=== PATIENT | male | born 1980 | race Caucasian/White ===

== ENCOUNTER 2018-11-19 17:58 | Emergency (ER) | payer MEDICAID, SELFPAY ==
[2018-11-19 18:00] VITALS: BP 126/78; PULSE 82; RESP 16; TEMP 36.5; O2SAT 97
--- NOTE | 2018-11-19 18:08 | ED.GENADUL_ITS ---
Discharge Plan Disposition Patient Disposition: HOME Condition: Stable Discharge Details Chief Complaint: DentalOral Clinical Impression: Pain, dental Primary Care Provider: Dianne Thomas ED Provider: Christiano Thacker Home Meds and New Rx's Prescriptions: New amoxicillin 875 mg tablet 875 mg PO BID Qty: 20 RF: 0 Continued ibuprofen 600 MG tablet 600 mg PO Q6H PRN (Reason: Pain) Qty: 16 RF: 0 No Action penicillin V potassium 500 MG tablet 500 mg PO QID Qty: 28 RF: 0 cyclobenzaprine 10 MG tablet 10 mg PO Q8H PRN (Reason: Muscle Spasm) Qty: 15 RF: 0 Discharge Instructions Additional Instructions: follow up with your dentist within 1-2 weeks if you have difficulty breathing, difficulty swallowing liquids or high fevers return to the emergency department you can take 1000mg tylenol and 600mg ibuprofen every 6 hours for pain as needed Medical Decision Making 38 yo male comes in with left upper tooth pain starting today without fevers, chills, dyspnea or difficulty swallowing. STates he has poor dentition and has hx of dental infections and needs his teeth pulled. He is in no distress on exam speaking and swallowing without problems. HAs numerous dental caries with no abscess currently, has pain with percussion to the left upper tooth that is eroded. No submandibular swelling, no pain over hyoid or restricted neck movements, no findings to suggest rpa, area captain, epiglotitis, lemieres, ludwigs. Will start on abx and d/c home and advised f/u with dentist Differential Diagnosis Differential Diagnosis: dental abscess, pulpitis HPI General Mode of arrival: ambulatory . Date/Time Provider Initiated Documentation: 11/19/18 17:58 . Limitations to Documentation: no limitations . Information obtained by: patient . History of Present Illness 38 year old M presents to the emergency department with the chief complaint of dental pain, described as moderate, and it has been constant. No relieving factors improve symptom(s), No exacerbating factors reported . Patient did receive the following treatments prior to arrival, none Related Data Home Medications Medication Instructions Recorded Confirmed penicillin V potassium 500 mg PO QID #28 tablet 02/03/17 cyclobenzaprine 10 mg PO Q8H PRN #15 tab 08/14/17 ibuprofen 600 mg PO Q6H PRN #16 tablet 08/14/17 amoxicillin 875 mg PO BID #20 tab 11/19/18 Previous Rx's Medication Instructions Recorded penicillin V potassium 500 mg PO QID #28 tablet 02/03/17 cyclobenzaprine 10 mg PO Q8H PRN #15 tab 08/14/17 ibuprofen 600 mg PO Q6H PRN #16 tablet 08/14/17 amoxicillin 875 mg PO BID #20 tab 11/19/18 Allergies Allergy/AdvReac Type Severity Reaction Status Date / Time No Known Allergies Allergy Unverified 02/03/17 13:45 General Stated Complaint: DentalOral HERLINDA: 4 Review of Systems Review of Systems ROS Unobtainable: All systems reviewed & are unremarkable except as noted in HPI and below Constitutional Constitutional: Denies chills and Denies fever(s) Cardiovascular Cardiovascular: Denies dyspnea Respiratory Respiratory: Denies cough and Denies dyspnea Gastrointestinal Gastrointestinal: Denies abdominal pain, Denies nausea and Denies vomiting Integumentary/Breasts Skin/Breast: Denies rash PFSH Social History Smoking/Tobacco Use Status: Current every day Tobacco Type: cigarettes Alcohol Intake: never Substance use type: does not use Do you feel safe at home: Yes Do you feel safe in your relationship?: Yes Exam Const General: no acute distress Orientation: alert HENMT Head: normal to inspection Ears: external ears normal General nose exam: external nose normal Mouth: moist mucous membranes Eyes General: appearance normal, both eyes and all related structures Neck Neck: normal visual inspection Resp Effort & Inspection: normal respiratory effort and able to speak in complete sentences Cardio Rate: regular rate Skin General skin exam: no rashes or lesions noted Neuro General: alert and oriented x3 Extrem General: normal to inspection Psych Mental Status: mental status grossly normal Course Vital Signs Vital signs: Vital Signs Temperature 36.5 C 11/19/18 18:00 Pulse 82 11/19/18 18:00 Respiratory Rate 16 11/19/18 18:00 Blood Pressure 126/78 11/19/18 18:00 Pulse Oximetry 97 11/19/18 18:00 Temperature 36.5 C 11/19/18 18:00 Temperature Source Skin 11/19/18 18:00 Pulse 82 11/19/18 18:00 Respiratory Rate 16 11/19/18 18:00 Respiratory Effort Non-Labored 11/19/18 18:02 Blood Pressure 126/78 11/19/18 18:00 Blood Pressure Position Sitting 11/19/18 18:00 Pulse Oximetry 97 11/19/18 18:00 Oxygen Delivery Method Room Air 11/19/18 18:00 Oxygen Flow Rate 0 11/19/18 18:00 Pain Level 3 11/19/18 18:00
[2018-11-19 18:30] VITALS: BP 126/78; PULSE 82; RESP 16; TEMP 36.5; O2SAT 97
== END 2018-11-19 18:30 | disposition home or self-care (01) ==
PROVIDERS: Emergency Provider Emergency Medicine; PCP Nurse Practitioner
DX: R68.84 Jaw pain (principal); K08.89 Other specified disorders of teeth and supporting structures
CPT/HCPCS: 99283

== ENCOUNTER 2018-11-30 03:18 | Emergency (ER) | payer MEDICAID, SELFPAY ==
[2018-11-30 03:23] VITALS: BP 114/74; PULSE 95; RESP 16; TEMP 37; O2SAT 99
--- NOTE | 2018-11-30 03:24 | ED.GENADUL_ITS ---
Discharge Plan Disposition Patient Disposition: HOME Condition: Stable Discharge Details Chief Complaint: Abd Prob Clinical Impression: Diarrhea Primary Care Provider: Dianne Thomas ED Provider: Christiano Thacker Home Meds and New Rx's Prescriptions: Discontinued amoxicillin 875 mg tablet 875 mg PO BID Qty: 20 RF: 0 penicillin V potassium 500 MG tablet 500 mg PO QID Qty: 28 RF: 0 No Action No Known Home Meds RF: 0 Discharge Instructions Instructions: Acute Diarrhea (ED) Additional Instructions: Stop taking the antibiotics collect a stool sample and bring it to the lab for testing. You will be contacted if the tests are positive follow up with your primary care provider if not better in a week. try taking over the counter imodium, follow dosing instructions on packaging if you feel you are becoming more ill or have severe worsening pain or persistent vomit return to the emergency department Stand Alone Forms: Work Release Medical Decision Making 38 yo male who is on antibiotics for dental infection (amoxicillin) comes in with chief complaint of several days of abdominal cramping and watery diarrhea. Denies vomit, fevers, recent travel, severe abdominal pain. He has no tenderness on abdominal exam and no distention or other worrisome findings. I suspect antibiotic associated diarrhea vs gastroenteritis, less likely c diff but given on abx advised we should test for this, unfortunately he just went to the bathroom and doesn't feel he can provide a sample so he prefers to collect at home and bring back tot he lab. Given reassuring abdominal exam, stable vitals do not feel acute imaging or other lab work indicated. Will d/c with stool collection order and return precautions given Differential Diagnosis Differential Diagnosis: cdiff, antibiotic associated diarrhea, gastroenteritis HPI General Mode of arrival: ambulatory . Date/Time Provider Initiated Documentation: 11/30/18 03:21 . Limitations to Documentation: no limitations . Information obtained by: patient . History of Present Illness 38 year old M presents to the emergency department with the chief complaint of diarrhea, described as moderate, and it has been intermittent. No relieving factors improve symptom(s), No exacerbating factors reported . Patient did receive the following treatments prior to arrival, none Related Data Home Medications Medication Instructions Recorded Confirmed Unknown [No Known Home Meds] 11/30/18 11/30/18 Allergies Allergy/AdvReac Type Severity Reaction Status Date / Time No Known Allergies Allergy Unverified 09/23/19 03:32 General HERLINDA: 4 Review of Systems Review of Systems ROS Unobtainable: All systems reviewed & are unremarkable except as noted in HPI and below Constitutional Constitutional: Denies chills, Denies fever(s) and Denies weakness Cardiovascular Cardiovascular: Denies chest pain and Denies dyspnea Respiratory Respiratory: Denies dyspnea Gastrointestinal Gastrointestinal: Denies nausea and Denies vomiting Genitourinary Genitourinary: Denies dysuria Musculoskeletal Musculoskeletal: Denies joint swelling Integumentary/Breasts Skin/Breast: Denies rash Neurologic Neurologic: Denies weakness [facility] Social History Smoking/Tobacco Use Status: Current every day Tobacco Type: cigarettes Alcohol Intake: never Substance use type: does not use Do you feel safe at home: Yes Do you feel safe in your relationship?: Yes Exam Const General: no acute distress Orientation: alert HENMT Head: normal to inspection Ears: external ears normal General nose exam: external nose normal Mouth: moist mucous membranes Eyes General: appearance normal, both eyes and all related structures Neck Neck: normal visual inspection Resp Effort & Inspection: normal respiratory effort and able to speak in complete sentences Cardio Rate: regular rate GI Palpation: soft Skin General skin exam: no rashes or lesions noted Neuro General: alert and oriented x3 Extrem General: normal to inspection Psych Mental Status: mental status grossly normal
[2018-11-30] MEDS: Loperamide 2 MG CAP 4 MG PO (03:43)
== END 2018-11-30 03:50 | disposition home or self-care (01) ==
PROVIDERS: Emergency Provider Emergency Medicine; PCP Nurse Practitioner
DX: R19.7 Diarrhea, unspecified (principal)
CPT/HCPCS: 99283

== ENCOUNTER 2018-12-25 06:55 | Emergency (ER) | payer MEDICAID, SELFPAY ==
[2018-12-25 07:00] VITALS: BP 113/69; PULSE 90; RESP 16; TEMP 36.3; O2SAT 97
--- NOTE | 2018-12-25 07:04 | W.ED.GENAD ---
Discharge Plan Disposition Patient Disposition: HOME Condition: Good Discharge Details Chief Complaint: RespSymp Clinical Impression: Acute bacterial sinusitis Primary Care Provider: Angela Montana ED Provider: Jean Claude Jin and New Rx's Prescriptions: New amoxicillin-pot clavulanate [Augmentin] 875-125 mg tablet 1 tab PO BID Qty: 14 RF: 0 Discharge Instructions Instructions: Sinusitis (ED) Additional Instructions: Antibiotic as prescribed. Acetaminophen or ibuprofen as needed for discomfort or fever. Decongestants and plenty of fluids to stay hydrated. Follow-up with primary care next week if not getting better. Return to ED for persistent high fevers, worsening headaches, mental status changes, difficulty breathing, other concerns or problems. Stand Alone Forms: Work Release Referrals: Angela Montana, [employer] [Primary Care Provider] - Medical Decision Making Patient presenting with signs and symptoms consistent with sinusitis. Given that he was getting better and subsequently got worse with associated sweats and chills likely bacterial at this point. Vital signs are good. Saturations are good. Lungs are clear. Will start on Augmentin and have him follow-up with primary care next week if not better. Return to ED for persistent high fevers, worsening headache, mental status changes, difficulty breathing. HPI General Mode of arrival: ambulatory. Date/Time Provider Initiated Documentation: 12/25/18 07:02. Limitations to Documentation: no limitations. Information obtained by: patient and RN notes reviewed. HPI Narrative: Patient presents to ED with complaint of congestion, cough, sinus pressure. Patient has been ill for about 2 weeks. Thought he was getting better earlier this week and subsequently got worse again. Now having sweats and chills. Has a lot of discomfort and congestion behind the eyes. Has thick yellow nasal discharge. Denies having earache, sore throat, shortness of breath. He does have a cough. He does smoke. He has no significant past medical history. Related Data Home Medications Medication Instructions Recorded Confirmed amoxicillin-pot clavulanate 1 tab PO BID #14 tab 12/25/18 [Augmentin] Previous Rx's Medication Instructions Recorded amoxicillin-pot clavulanate 1 tab PO BID #14 tab 12/25/18 [Augmentin] Allergies Allergy/AdvReac Type Severity Reaction Status Date / Time No Known Allergies Allergy Unverified 12/25/18 07:06 General Stated Complaint: RespSymp HERLINDA: 4 Review of Systems Review of Systems Narrative: As documented in HPI otherwise negative as below. Const: sweats and chills; no documented fever, weakness Resp: cough; SOB, pleuritic pain CV: no CP, edema, syncope GI: no abdominal pain, nausea, vomiting, diarrhea Neuro: no headache, numbness, focal weakness, confusion PFSH Family History (Updated 12/04/18 @ 12:03 by Opal Naidu) Father Substance abuse Heart disease Mother Anxiety Depression Diabetes Social History Smoking/Tobacco Use Status: Current every day Tobacco Type: cigarettes and smokeless tobacco Alcohol Intake: never Drug use: Current Sobriety Substance use type: does not use and opiates Details: History of IV Drug Use Household members: significant other Housing: house Do you need help understanding health information?: Rarely current occupation: [employer] Sexually active: Yes Do you think of yourself as: straight/heterosexual Current gender identity: male Do you feel safe at home: Yes Do you feel safe in your relationship?: Yes Exam Narrative Exam Narrative: Vitals: Afebrile. Normal vital signs and normal room air pulse ox. Const: WDWN male in NAD. HEENT: NC/AT. Normal facial exam. No maxillary or frontal sinus tenderness. TMs clear. OP clear. Eyes: Normal conjunctiva and sclera. Neck: Supple. Trachea midline. Lungs: Normal respiratory effort. Lungs are clear. Cor: RRR without murmur/gallop. Good radial pulses. Neuro: A+O x 3. CN grossly in tact. Good strength and no focal deficit. Course Vital Signs Vital signs: Vital Signs Temperature 97.3 F L 12/25/18 07:00 Pulse 90 12/25/18 07:00 Respiratory Rate 16 12/25/18 07:00 Blood Pressure 113/69 12/25/18 07:00 Pulse Oximetry 97 12/25/18 07:00 Temperature 97.3 F L 12/25/18 07:00 Temperature Source Temporal Artery Scan 12/25/18 07:00 Pulse 90 12/25/18 07:00 Respiratory Rate 16 12/25/18 07:00 Respiratory Effort Non-Labored 12/25/18 07:00 Blood Pressure 113/69 12/25/18 07:00 Blood Pressure Position Sitting 12/25/18 07:00 Pulse Oximetry 97 12/25/18 07:00 Oxygen Delivery Method Room Air 12/25/18 07:00 Oxygen Flow Rate 0 12/25/18 07:00 Pain Level 0 12/25/18 07:00
[2018-12-25] MEDS: Amoxicillin 875/Clav. 125 TAB PO (07:29)
== END 2018-12-25 07:30 | disposition home or self-care (01) ==
PROVIDERS: Emergency Provider Emergency Medicine; PCP Nurse Practitioner Adult Health
DX: J01.90 Acute sinusitis, unspecified (principal)
CPT/HCPCS: 99283

== ENCOUNTER 2020-05-04 03:25 | Outpatient (CLI) | payer MEDICAID, SELFPAY ==
[2020-05-04 11:17] LABS: Calculated LDL 58 mg/dL (<100); Cholesterol 145 mg/dL (<200); HDL Cholesterol 54 mg/dL (40-60); Triglyceride 169 mg/dL (<150)
== END 2020-05-04 03:26 | disposition home or self-care (01) ==
LOC: LBO 03:25
PROVIDERS: PCP Family Medicine; Visit Provider Family Medicine
DX: Z13.220 Encounter for screening for lipoid disorders (principal); Z82.49 Family history of ischemic heart disease and other diseases of the circulatory system
CPT/HCPCS: 36415; 80061

== ENCOUNTER 2020-06-14 07:30 | Emergency (ER) | payer OTHER, SELFPAY ==
[2020-06-14 07:38] VITALS: BP 117/71; PULSE 78; RESP 15; TEMP 36.6; O2SAT 96
[2020-06-14] MEDS: Lidocaine 1% Multi-Dose 50 ML VIAL (08:10)
--- NOTE | 2020-06-14 08:29 | ED.GENADUL_ITS ---
Discharge Plan Disposition Patient Disposition: HOME Condition: Good Discharge Details Clinical Impression: Finger laceration Primary Care Provider: Nima Leonardo ED Provider: Bridgette Bennett Home Meds and New Rx's Prescriptions: No Action naproxen [Naprosyn] 500 mg Tablet 500 mg PO BID PRNRF: 0 buprenorphine-naloxone 12-3 mg Film 1 film BUCCAL Q24H RF: 0 Discharge Instructions Instructions: Finger Laceration (ED) Additional Instructions: Keep wound clean and dry Change dressing every 1 to 2 days Refrain from flexing and extending your finger Suture removal in 12 days Return with worsening pain, spreading redness, fever, chills, or with any new or worsening complaints Medical Decision Making Patient placed in splint, tolerated suture placement without incident Irrigated copiously Dressing applied Return precautions discussed and patient expressed understanding No evidence of tendon avulsion, range of motion intact, strength and sensation intact Suspicion for fracture, no additional trauma Differential Diagnosis Differential Diagnosis: Laceration, abrasion, contusion, fracture Medical Records Medical records reviewed: Yes I reviewed the patient's medical records. HPI This 40-year-old male presents with report of laceration to his left thumb just prior to arrival. Patient is reportedly comfortable chiseling at work. He denies any additional injury. He denies any strength or sensation change. The event occurred at 5:00 morning General Date/Time Provider Initiated Documentation: 06/14/20 08:06 . Related Data Home Medications Medication Instructions Recorded Confirmed buprenorphine-naloxone 1 film BUCCAL Q24H 06/14/20 06/14/20 naproxen [Naprosyn] 500 mg PO BID PRN 06/14/20 06/14/20 Allergies Allergy/AdvReac Type Severity Reaction Status Date / Time No Known Allergies Allergy Unverified 06/14/20 07:42 General Stated Complaint: Laceration HERLINDA: 4 Review of Systems Narrative: Review of systems obtained x3 and negative aside from where indicated in HPI PFSH Social History Smoking risk assessment performed?: No Alcohol Intake: never Drug use: Current Sobriety Do you feel safe at home: Yes Do you feel safe in your relationship?: Yes Exam Extrem Other: Left hand laceration left radial aspect of thumb, brisk capillary refill, strength and sensation intact Course Vital Signs Vital signs: Vital Signs Temperature 36.6 C 06/14/20 07:38 Pulse 78 06/14/20 07:38 Respiratory Rate 15 06/14/20 07:38 Blood Pressure 117/71 06/14/20 07:38 Pulse Oximetry 96 06/14/20 07:38 Temperature 36.6 C 06/14/20 07:38 Temperature Source Temporal Artery Scan 06/14/20 07:38 Pulse 78 06/14/20 07:38 Respiratory Rate 15 06/14/20 07:38 Respiratory Effort Non-Labored 06/14/20 07:43 Blood Pressure 117/71 06/14/20 07:38 Blood Pressure Position Sitting 06/14/20 07:38 Pulse Oximetry 96 06/14/20 07:38 Oxygen Delivery Method Room Air 06/14/20 07:38 Oxygen Flow Rate 0 06/14/20 07:38 Pain Level 5 06/14/20 08:06 Procedures Laceration Laceration 1: Site: hand Side (If applicable): left Size (cm): 2 Description: linear Depth: simple, single layer Local Anesthetic: Lidocaine 1% Amount of anesthesia used (mL): 4 Pre-repair: wound explored and irrigated extensively Skin layer closed with: nylon Size (cm): 4-0 Number of sutures: 3 Technique: simple, interrupted
== END 2020-06-14 09:39 | disposition home or self-care (01) ==
PROVIDERS: Emergency Provider Physician Assistant; PCP Internal Medicine
DX: S61.012A Laceration without foreign body of left thumb without damage to nail, initial encounter (principal); W26.8XXA Contact with other sharp object(s), not elsewhere classified, initial encounter; Y99.0 Civilian activity done for income or pay
CPT/HCPCS: 12001; J3490

== ENCOUNTER 2020-06-25 13:02 | Emergency (ER) | payer MEDICAID, SELFPAY ==
--- NOTE | 2020-06-25 13:04 | ED.GENADUL_ITS ---
Discharge Plan Disposition Patient Disposition: HOME Condition: Good Discharge Details Clinical Impression: Visit for suture removal Primary Care Provider: Karan Hunt ED Provider: Lesa Bauer Home Meds and New Rx's Prescriptions: Continued nicotine (polacrilex) 4 mg gum 4 mg BC Q2H PRN (Reason: nicotine cravings) Qty: 50 RF: 3 naproxen [Naprosyn] 500 mg Tablet 500 mg PO BID PRNRF: 0 buprenorphine-naloxone 12-3 mg Film 1 film BUCCAL Q24H RF: 0 Discharge Instructions Instructions: Stitches Removal (ED) Additional Instructions: Wound appears to be healing well at this time. Please continue to follow precautions prevent infection. You may apply vitamin E oil and massage to the area to help reduce scarring. Please avoid direct sunlight as this will also increase scarring. if you develop any fever/chills, increased pain, redness or other new/worsening symptoms please seek care urgently once again. Referrals: Karan Hunt DO [Primary Care Provider] - Medical Decision Making Patient is a pleasant [id number] 40-year-old male presenting today with chief complaint of suture removal. Patient had sutures placed here 11 days ago. Denies any pain. On exam, patient appears nontoxic. Wound appears to be healing well without any evidence of infection. No erythema, warmth, drainage. Wound edges are well approximated. #3 stitches were removed by myself without difficulty, patient tolerated this well. Patient has been in a splint and does have slightly limited flexion. He continues to have good extension. The wound is on the dorsal aspect of the finger. I encourage gentle massage to the area as he does have some palpable scar tissue. Advised he may use vitamin E oil. Advised that he stay out of direct sunlight to help prevent scarring. I advised that he should continue to monitor wound for signs of infection and try to avoid forced flexion during the period of healing. However, I did advise that he may work on gentle range of motion. Advise follow-up with primary care. Return precautions were discussed. All questions concerns were addressed and he is in agreement with this plan. HPI General Mode of arrival: ambulatory . Date/Time Provider Initiated Documentation: 06/25/20 13:04 . Limitations to Documentation: no limitations . Information obtained by: patient and RN notes reviewed . History of Present Illness 40 year old M presents to the emergency department with the chief complaint of presents for suture removal, described as mild (denies any pain), and is localized to the left and upper extremity. Patient reports no radiation. Patient started experiencing this day(s) (11) and it has been now resolved. No relieving factors improve symptom(s), No exacerbating factors reported . Patient notes no other symptoms.. Patient did receive the following treatments prior to arrival, none Related Data Home Medications Medication Instructions Recorded Confirmed nicotine (polacrilex) 4 mg gum 4 mg BC Q2H PRN #50 each 11/08/19 06/25/20 buprenorphine-naloxone 1 film BUCCAL Q24H 06/14/20 06/25/20 naproxen [Naprosyn] 500 mg PO BID PRN 06/14/20 06/25/20 Previous Rx's Medication Instructions Recorded nicotine (polacrilex) 4 mg gum 4 mg BC Q2H PRN #50 each 11/08/19 Allergies Allergy/AdvReac Type Severity Reaction Status Date / Time No Known Allergies Allergy Verified 06/25/20 13:11 General HERLINDA: 4 Review of Systems Constitutional Constitutional: Reports as per HPI, Denies chills, Denies fever(s) and Denies weakness Musculoskeletal Musculoskeletal: Reports as per HPI and Denies tingling Integumentary/Breasts Skin/Breast: Reports as per HPI Neurologic Neurologic: Denies sensory deficit, Denies tingling and Denies weakness [facility] Medical History Carpal tunnel syndrome, bilateral Cubital tunnel syndrome, bilateral Family history of cardiovascular disease Polyarthritis Family History (System 06/15/20 @ 16:21 by Bita Easley) Father Substance abuse Heart disease Mother Anxiety Depression Diabetes Social History Smoking/Tobacco Use Status: Current every day Tobacco Type: cigarettes and smokeless tobacco Quit status: considering quitting Smoking risk assessment performed?: Yes Alcohol Intake: never Drug use: Current Sobriety Substance use type: does not use and opiates Details: History of IV Drug Use, on Suboxone Household members: significant other Housing: house Number of Children: 3 Do you need help understanding health information?: Rarely current occupation: [employer] Sexually active: Yes Do you think of yourself as: straight/heterosexual Current gender identity: male What is your relationship status?: living with partner Panel score (0-1 are the most socially isolated patients): 1 What type of physical activity do you participate in: other Details: physically active at work Seatbelt use: always 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 Working smoke detector in home: Yes Fire extinguisher in home: Yes Carbon monox detector in home: Yes Do you feel safe at home: Yes Do you feel safe in your relationship?: Yes Exam Const General: cooperative, healthy appearing, comfortable, no acute distress and well developed Nutritional Appearance: average body habitus and well nourished Orientation: alert and awake Resp Effort & Inspection: normal respiratory effort, able to speak in complete sentences and no respiratory distress Cardio Rate: regular rate Rhythm: regular rhythm Neuro General: patient alert and patient awake Cognition: normal cognition Speech: speech normal Gait: normal gait Extrem Hand/finger images: 1. Linear laceration closed with simple interrupted stitches. No evidence of infection. No erythema, warmth, drainage. Wound appears to be healing well and stitches are able to be removed at this time. Psych Appearance: grossly normal and well kempt Mental Status: mental status grossly normal Speech and Movement: speech and movement normal
[2020-06-25 13:06] VITALS: BP 128/76; PULSE 89; RESP 16; TEMP 36.4; O2SAT 100
== END 2020-06-25 13:16 | disposition home or self-care (01) ==
PROVIDERS: Emergency Provider Physician Assistant; PCP Family Medicine
DX: S61.219D Laceration without foreign body of unspecified finger without damage to nail, subsequent encounter (principal); X58.XXXD Exposure to other specified factors, subsequent encounter; Z48.02 Encounter for removal of sutures

== ENCOUNTER 2020-09-11 13:07 | Emergency (ER) | payer OTHER, SELFPAY ==
[2020-09-11 13:18] VITALS: BP 128/84; PULSE 99; RESP 16; TEMP 36.5; O2SAT 100
--- NOTE | 2020-09-11 13:30 | DI.RAD_ITS ---
Exam(s) XR WRIST LT COMPLETE EXAM: XR WRIST LT COMPLETE CLINICAL HISTORY: FOOSH injury, R/O Fracture. TECHNIQUE: 2D digital imaging was performed. COMPARISON: No exams were available for comparison FINDINGS: BONES: No acute fracture is present. No bony destructive lesion is seen. JOINTS: The carpal bones are normally aligned. SOFT TISSUE: Normal. IMPRESSION: Unremarkable radiographs of the left wrist. DATA REPOSITORY: RADIATION DOSE DELIVERED:
--- NOTE | 2020-09-11 13:31 | ED.GENADUL_ITS ---
Discharge Plan Disposition Patient Disposition: HOME Condition: Stable Discharge Details Clinical Impression: Left wrist sprain Primary Care Provider: Karan Hunt ED Provider: Emely Flores Home Meds and New Rx's Prescriptions: No Action nicotine (polacrilex) 4 mg gum 4 mg BC Q2H PRN (Reason: nicotine cravings) Qty: 50 RF: 3 naproxen [Naprosyn] 500 mg tablet 500 mg PO BID PRN (Reason: pain) Qty: 60 RF: 3 buprenorphine-naloxone 12-3 mg Film 1 film BUCCAL Q24H RF: 0 Discharge Instructions Instructions: Wrist Sprain (ED) Additional Instructions: The x-rays today show no evidence for fracture broken bones. I do suspect that you sprained your wrist. Rest, ice, compression elevation. Wear the splint as needed for comfort for the next week or 2 and while working. Please follow-up with orthopedics in 2 to 3 weeks if continued pain. Please take Tylenol or Ibuprofen with food every 4-6 hours as needed for pain and swelling. Stand Alone Forms: Work Release Referrals: Joce Velasquez MD [ [facility] STAFF PHYSICIAN] - Return if symptoms worsen Karan Hunt DO [Primary Care Provider] - Discharge Data Discharge Date/Time-TO BE ENTERED AT DEPARTURE: 09/11/20 14:25 Medical Decision Making 40-year-old male presents to ER chief complaint of left wrist pain status post work-related injury. Patient states he has not ladder when it got knocked out from under him he did land on his left side and his left wrist. Denies any other injuries no neck pain no back pain no head injury no loss of consciousness. Denies any chest abdomen pelvis pain. He states this happened approximately 10 AM. He did take ibuprofen prior to arrival and did ice his wrist. He is complaining of palmar and dorsal aspect of wrist elbow full range of motion distal circulation sensation movement intact. No obvious deformity noted on initial exam. At this time x-ray of left wrist ordered. Imaging protocol: XR Left wrist. Views: 3 or more views. COMPARISON: No relevant prior studies available. FINDINGS: Bones/joints: There is no evidence of acute fracture. There is no evidence of joint malalignment or dislocation. Soft tissues: There are no soft tissue masses or fluid collections. IMPRESSION: 1. No evidence of acute fracture. 2. No evidence of acute dislocation Discussed x-ray with patient verbalized understanding. Offered a wrist splint which he declined states he has one at home already. Discussed home care, verbalized understanding. HPI General Mode of arrival: ambulatory . Date/Time Provider Initiated Documentation: 09/11/20 13:18 . Limitations to Documentation: no limitations . Information obtained by: patient and RN notes reviewed . HPI Narrative: 40-year-old male presents to ER chief complaint of left wrist pain status post work-related injury. Patient states he has not ladder when it got knocked out from under him he did land on his left side and his left wrist. Denies any other injuries no neck pain no back pain no head injury no loss of consciousness. Denies any chest abdomen pelvis pain. He states this happened approximately 10 AM. He did take ibuprofen prior to arrival and did ice his wrist. He is complaining of palmar and dorsal aspect of wrist elbow full range of motion distal circulation sensation movement intact. No obvious deformity noted on initial exam. Related Data Home Medications Medication Instructions Recorded Confirmed nicotine (polacrilex) 4 mg gum 4 mg BC Q2H PRN #50 each 11/08/19 09/11/20 buprenorphine-naloxone 1 film BUCCAL Q24H 06/14/20 09/11/20 naproxen 500 mg tablet 500 mg PO BID PRN #60 tab 08/29/20 09/11/20 Previous Rx's Medication Instructions Recorded nicotine (polacrilex) 4 mg gum 4 mg BC Q2H PRN #50 each 11/08/19 naproxen 500 mg tablet 500 mg PO BID PRN #60 tab 08/29/20 Allergies Allergy/AdvReac Type Severity Reaction Status Date / Time No Known Allergies Allergy Verified 09/11/20 13:23 General Stated Complaint: Orthopedic HERLINDA: 4 Review of Systems All systems reviewed & are unremarkable except as noted in HPI and below ENT Ears, Nose, Mouth, and Throat: Denies neck pain Musculoskeletal Musculoskeletal: Denies abnormal gait, Denies back pain, Denies deformity, Reports arthralgias (Left wrist), Denies neck pain, Denies numbness and Denies tingling Neurologic Neurologic: Denies abnormal gait, Denies numbness and Denies tingling PFSH Medical History Carpal tunnel syndrome, bilateral Family history of cardiovascular disease History of opioid abuse Polyarthritis Tobacco use Family History Father Substance abuse Heart disease Mother Anxiety Depression Diabetes Social History Smoking/Tobacco Use Status: Current every day Tobacco Type: cigarettes Quit status: considering quitting Smoking risk assessment performed?: Yes Alcohol Intake: never Drug use: Current Sobriety Substance use type: does not use and opiates Details: History of IV Drug Use, on Suboxone Household members: significant other Housing: house Number of Children: 3 Do you need help understanding health information?: Rarely current occupation: [employer] Sexually active: Yes Do you think of yourself as: straight/heterosexual Current gender identity: male What is your relationship status?: living with partner Panel score (0-1 are the most socially isolated patients): 1 What type of physical activity do you participate in: other Details: physically active at work Seatbelt use: always 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 Skin: Warm and Dry HEENT: Head: No palpable deformities, Normocephalic Eyes: Pupils PERRLA, EOM's intact. No periorbital eccymosis or step off Ears: Canal patent. Tympanic membranes are clear . No monteiro's sign, no hemptympanum. Nose/Face: Atraumatic. Facial bones nontender to palpation and stable with manipulation. Mouth/Throat: No intraoral trauma. Teeth and mandible are intact. Neck: No midline tenderness, no step off, no deformity to palpation of C-spine. Trachea midline. Chest: No surface trauma. Nontender without crepitus or deformity. Lungs clear to ausculatation bilaterally. Heart: RRR, no rubs, murmurs or gallop. Abdomen: No abrasions, ecchymosis, or surface trauma. Nondistended. Nontender to palpation no guarding, rebound, or rigidity. Pelvis: Nontender to palpation and stable to compression. Femoral pulses strong and equal Extremities no surface trauma. Sensation intact. Peripheral pulses intact and equal. Tenderness with palpation to the dorsum left wrist palmar aspect of left wrist no snuffbox tenderness. Able to extend and flex fingers without difficulty. Pulses intact. Elbow range of motion intact. Neuro: ANO x4, GCS 15, cranial nerves II through XII intact. Motor and sensory exam nonfocal. Reflexes are symmetric. Course Vital Signs Vital signs: Vital Signs Temperature 36.5 C 09/11/20 13:18 Pulse 99 H 09/11/20 13:18 Respiratory Rate 16 09/11/20 13:18 Blood Pressure 128/84 09/11/20 13:18 Pulse Oximetry 100 09/11/20 13:18 Temperature 36.5 C 09/11/20 13:18 Temperature Source Temporal Artery Scan 09/11/20 13:18 Pulse 99 H 09/11/20 13:18 Respiratory Rate 16 09/11/20 13:18 Respiratory Effort Non-Labored 09/11/20 13:18 Blood Pressure 128/84 09/11/20 13:18 Blood Pressure Position Sitting 09/11/20 13:18 Pulse Oximetry 100 09/11/20 13:18 Oxygen Delivery Method Room Air 09/11/20 13:18 Oxygen Flow Rate 0 09/11/20 13:18 Pain Level 7 09/11/20 13:18
--- NOTE | 2020-09-11 14:12 | DI.VRAD_ITS ---
PROCEDURE INFORMATION: Exam: XR Left Wrist Exam date and time: 09/11/2020 1:31 PM Age: 40 years old Clinical indication: Injury or trauma; Fall; Sprain or strain; Wrist; Left TECHNIQUE: Imaging protocol: XR Left wrist. Views: 3 or more views. COMPARISON: No relevant prior studies available. FINDINGS: Bones/joints: There is no evidence of acute fracture. There is no evidence of joint malalignment or dislocation. Soft tissues: There are no soft tissue masses or fluid collections. IMPRESSION: 1. No evidence of acute fracture. 2. No evidence of acute dislocation. Dictated and Authenticated by: Delbert Dietz MD. Ordering:JULIAN Han MD
[2020-09-11 14:23] VITALS: BP 128/84; PULSE 99; RESP 16; TEMP 36.5; O2SAT 100
== END 2020-09-11 14:25 | disposition home or self-care (01) ==
PROVIDERS: Emergency Provider Registered Nurse Emergency; PCP Family Medicine
DX: S63.592A Other specified sprain of left wrist, initial encounter (principal); W17.89XA Other fall from one level to another, initial encounter; Y99.0 Civilian activity done for income or pay
CPT/HCPCS: 99283; 73110

== ENCOUNTER 2020-09-25 16:13 | Emergency (ER) | payer MEDICAID, SELFPAY ==
[2020-09-25 16:25] VITALS: BP 116/79; PULSE 96; RESP 16; TEMP 37.1; O2SAT 94
--- NOTE | 2020-09-25 16:45 | DI.CT_ITS ---
Exam(s) CT ABDOMEN PELVIS W EXAM: CT ABDOMEN PELVIS W CLINICAL HISTORY: Abdominal Pain, Umbilical hernia. TECHNIQUE: Imaging Protocol: Axial computed tomography images with coronal and sagittal reformatted images were created and reviewed CONTRAST MATERIAL: Intravenous: Omnipaque 350 Contrast volume:100 ml Oral: / no COMPARISON: No exams were available for comparison FINDINGS: ABDOMEN: Lung Bases: Normal where visualized. Liver: Normal density. No measurable mass. Gallbladder and biliary tract: No radiodense calculus or dilation. Pancreas: Normal density, no abnormal calcifications or inflammatory process. Spleen: Normal. Kidneys: Normal size, contour and axis. No radiodense stones or obstructive uropathy. No masses seen. Adrenal glands: No masses seen. Abdominal Aorta: Abdominal portion non-dilated. Soft tissues: Small fatty containing umbilical hernia. There is some stranding in the fat near the a rolf of hernia which could indicate incarceration. There is no fluid within the hernia. PELVIS: Bladder: No gross wall thickening. No calculi.No focal mass. Bowel: No obstruction or bowel wall thickening. Appendix normal.Normal quantity of stool. Peritoneal cavity: No ascites, collection or mesenteric inflammatory response. Bones: Within normal limits for age. Reproductive organs: Within normal limits. Lymph nodes: Unremarkable. Impression: Small fatty containing umbilical hernia with some mild stranding which could indicate incarceration.. RADIATION DOSE DELIVERED: 1,035.52mGy.cm Total DLP DATA REPOSITORY: All CT scans at this facility are submitted to the National Radiology Data Registry (NRDR) Dose Index Registry (DIR) with the [employer] (ACR). RADIATION OPTIMIZATION: All CT scans at this facility use at least one of these dose optimization te chniques: automated exposure control; mA and/or kV adjustment per patient size (includes targeted exa ms where dose is matched to clinical indication); or iterative reconstruction.
--- NOTE | 2020-09-25 16:50 | ED.GENADUL_ITS ---
Discharge Plan Disposition Patient Disposition: HOME Condition: Stable Discharge Details Clinical Impression: Recurrent umbilical hernia with incarceration Primary Care Provider: Karan Hunt ED Provider: Emely Flores Home Meds and New Rx's Prescriptions: Continued nicotine (polacrilex) 4 mg gum 4 mg BC Q2H PRN (Reason: nicotine cravings) Qty: 50 RF: 3 naproxen [Naprosyn] 500 mg tablet 500 mg PO BID PRN (Reason: pain) Qty: 60 RF: 3 buprenorphine-naloxone 12-3 mg Film 1 film BUCCAL Q24H RF: 0 Discharge Instructions Instructions: Umbilical Hernia (ED) Additional Instructions: The CT today shows a umbilical hernia which is contained with Fat only. It may still continue to cause you pain for the next 2 to 3 days. If continued pain after 3 days, changing in color to purple, hernia which is increase in size, fever, vomiting or any concerns please follow-up with general surgery. Please take Tylenol or Ibuprofen with food every 4-6 hours as needed for pain and swelling. No heavy lifting over 50 pounds if possible. Follow up with primary care provider in 3-5 days. Return to ED sooner if any worsening or concerns. Increase oral fluids. Referrals: Karan Hunt DO [Primary Care Provider] - Dulce Franco DO [OSTEOPATHIC DOCTOR] - Return if symptoms worsen (Fat containing incarcerated umbilical hernia) Medical Decision Making 40-year-old male presents the ER complaint of abdominal pain and umbilical h ernia which he noticed this morning. He reports that he was lifting a 60 pound box yesterday noticed increased abdominal tenderness umbilical swelling today. He denies any nausea vomiting, no fever chills, does endorse greenish diarrhea yesterday. He took naproxen this morning with little to no relief. He denies any problems urinating or burning with urination. He has generalized abdominal tenderness on exam there is a small umbilical hernia with which is tender to palpation. Labs ordered including CBC, CMP, lipase CT abdomen pelvis with IV contrast Imaging protocol: Computed tomography of the abdomen and pelvis with contrast. COMPARISON: No relevant prior studies available. FINDINGS: Liver: Normal. No mass. Gallbladder and bile ducts: Normal. No calcified stones. No ductal dilation. Pancreas: Normal. No ductal dilation. Spleen: Normal. No splenomegaly. Adrenal glands: Normal. No mass. Kidneys and ureters: Normal. No hydronephrosis. Stomach and bowel: Unremarkable. No obstruction. No mucosal thickening. Appendix: No evidence of appendicitis. Intraperitoneal space: Unremarkable. No free air. No significant fluid collection. Vasculature: Unremarkable. No abdominal aortic aneurysm. Lymph nodes: Unremarkable. No enlarged lymph nodes. Urinary bladder: Unremarkable as visualized. Reproductive: Unremarkable as visualized. Bones/joints: Unremarkable. No acute fracture. Soft tissues: Small umbilical hernia containing fat. Area of hyperattenuation and stranding within the herniated fat raises suspicion for incarceration (series 4, image 44). IMPRESSION: Small umbilical hernia containing fat. Area of hyperattenuation and stranding within the herniated fat raises suspicion for incarceration. Thank you for allowing us to participate in the care of your patient. Dictated and Authenticated by: Judd Whitney MD [id number]: Spoke with Surgeon contestant coordinator Dr. Karimi regarding CT and patient case and details she was able to personally review the CT. She does note that the umbilical hernia is incarcerated however this is nonemergent and can be followed up as an outpatient if continued pain. Will discuss plan with patient. Follow up and strict return instructions discussed with patient, he verbalizes understanding. Patient remained hemodynamically stable throughout stay. This text was generated using Pikhub dictation system, please disregard any oddities of phrase or misspellings. HPI General Mode of arrival: ambulatory . Date/Time Provider Initiated Documentation: 09/25/20 16:14 . Limitations to Documentation: no limitations . Information obtained by: patient, RN notes reviewed and old records reviewed . HPI Narrative: 40-year-old male presents the ER complaint of abdominal pain and umbilical hernia which he noticed this morning. He reports that he was lifting a 60 pound box yesterday noticed increased abdominal tenderness umbilical swelling today. He denies any nausea vomiting, no fever chills, does endorse greenish diarrhea yesterday. He took naproxen this morning with little to no relief. He denies any problems urinating or burning with urination. He has generalized abdominal tenderness on exam there is a small umbilical hernia with which is tender to palpation. Related Data Home Medications Medication Instructions Recorded Confirmed nicotine (polacrilex) 4 mg gum 4 mg BC Q2H PRN #50 each 11/08/19 09/25/20 buprenorphine-naloxone 1 film BUCCAL Q24H 06/14/20 09/25/20 naproxen 500 mg tablet 500 mg PO BID PRN #60 tab 08/29/20 09/25/20 Previous Rx's Medication Instructions Recorded nicotine (polacrilex) 4 mg gum 4 mg BC Q2H PRN #50 each 11/08/19 naproxen 500 mg tablet 500 mg PO BID PRN #60 tab 08/29/20 Allergies Allergy/AdvReac Type Severity Reaction Status Date / Time No Known Allergies Allergy Verified 09/25/20 16:30 General Stated Complaint: Abd Prob HERLINDA: 3 Review of Systems Narrative: Constitutional: Negative for weight loss, alert and oriented, well groomed, normal body habitus, appears comfortable. HEENT: Denies trauma, headaches, blurry vision, nasal discharge, sore throat, trouble swallowing. Chest: Denies chest pain, palpitations, irregular rhythm, hypertension. Respiratory: Denies Shortness of breath, cough, hemoptysis. GI: Denies nausea, vomiting, constipation. Positive abdominal pain, swelling noted to the umbilical area, positive green diarrhea yesterday. : Denies dysuria, hematuria, flank pain, rectal bleeding. Neuro: Denies dizziness, blurry vision, weakness, syncope, headache or facial numbness. Hematologic: Denies easy bruising, intolerance to heat or cold, hair loss. PFSH Medical History Carpal tunnel syndrome, bilateral Family history of cardiovascular disease History of opioid abuse Polyarthritis Tobacco use Family History Father Substance abuse Heart disease Mother Anxiety Depression Diabetes Social History Smoking/Tobacco Use Status: Current every day Tobacco Type: cigarettes Quit status: considering quitting Smoking risk assessment performed?: Yes Alcohol Intake: never Drug use: Current Sobriety Substance use type: does not use and opiates Details: History of IV Drug Use, on Suboxone Household members: significant other Housing: house Number of Children: 3 Do you need help understanding health information?: Rarely current occupation: [employer] Sexually active: Yes Do you think of yourself as: straight/heterosexual Current gender identity: male What is your relationship status?: living with partner Panel score (0-1 are the most socially isolated patients): 1 What type of physical activity do you participate in: other Details: physically active at work Seatbelt use: always 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 Appears stated age. Normal body habitus. Head: Normocephalic, no trauma. Eyes: Pupils PERRLA, Red reflex noted, EOM's intact. Eyelids symmetrical without lesions, discharge, or swelling. ENT: Bilateral TM's WNL, External ear normal to inspection, no mastoid TTP, swelling, or erythema, Nasal turbinates WNL, no nasal discharge. Normal dentition, Posterior pharynx WNL, no exudate. Chest: RRR, Normal S1, S2, distal pulses intact. Resp: Lungs clear to auscultation bilaterally, no wheezes, rales, or rhonchi. Abdomen:, Guarded, generalized tenderness all 4 quadrants, umbilical hernia noted, red in color tender with palpation, unable to reduce it at this time. Musculoskeletal: Normal gait, 5/5 strength to all four extremities. Skin: No suspicious rashes or lesions. Capillary refill less than 2 sec. Neurologic: Cranial nerves II-XII intact. Alert and oriented x 3. DTR's intact. Hematologic/Lymphatic: No ecchymosis, no lymphadenopathy. Course Vital Signs Vital signs: Vital Signs Temperature 37.1 C 09/25/20 16:25 Pulse 96 H 09/25/20 16:25 Respiratory Rate 16 09/25/20 16:25 Blood Pressure 116/79 09/25/20 16:25 Pulse Oximetry 94 09/25/20 16:25 Temperature 37.1 C 09/25/20 16:25 Temperature Source Skin 09/25/20 16:25 Pulse 96 H 09/25/20 16:25 Respiratory Rate 16 09/25/20 16:25 Respiratory Effort Non-Labored 09/25/20 16:25 Blood Pressure 116/79 09/25/20 16:25 Blood Pressure Position Sitting 09/25/20 16:25 Pulse Oximetry 94 09/25/20 16:25 Oxygen Delivery Method Room Air 09/25/20 16:25 Oxygen Flow Rate 0 09/25/20 16:25 Pain Level 7 09/25/20 16:25
[2020-09-25] MEDS: Normal Saline 1,000 ML 1000 ML IV (17:30)
[2020-09-25 17:49] LABS: ALT 28 U/L (16-63); AST 26 U/L (15-37); Albumin 3.6 g/dL (3.4-5.0); Alkaline Phosphatase 74 U/L (46-116); Anion Gap 7.5 mmol/L (3-11); BUN 18 mg/dL (7-18); Bilirubin, Total 0.4 mg/dL (0.2-1.0); CO2 27.5 mmol/L (21.0-32.0); CREATININE 1.1 mg/dL (0.70-1.30); Calcium 8.7 mg/dL (8.5-10.1); Chloride 107 mmol/L (98-107); Glucose 94 mg/dL (74-106); Lipase 57 U/L (73-393); Magnesium 1.9 mg/dL (1.8-2.4); Sodium 142 mmol/L (136-145); Total Protein 7.2 g/dL (6.4-8.2)
[2020-09-25] MEDS: Omnipaque 350 MG/ML 100 ML BTL IJ (18:05)
[2020-09-25] MEDS: Normal Saline Flush 10 ML SYR IVP (18:05)
[2020-09-25 18:09] LABS: Abs Immature Grans 0.03 10^3/uL (0.0-0.06); Absolute Basophil Count 0.04 10^3/uL (0.0-0.2); Absolute Eosinophil Count 0.23 10^3/uL (0.0-0.7); Absolute Lymphocyte Count 2.42 10^3/uL (1.2-3.4); Absolute Monocyte Count 0.74 10^3/uL (0.1-0.8); Absolute Neutrophil Count 4.93 10^3/uL (1.2-6.7); Basophils % 0.5; Eosinophils % 2.7; HCT 38.2 % (40.0-50.0); Immature Grans % 0.4; Lymphocytes % 28.8; MCH 32.6 pg (27.0-33.0); MCV 95.7 fL (80-95); MPV 10.3 fL (8.0-11.0); Monocytes % 8.8; Neutrophils % 58.8; Nucleated RBC 0 %; Platelet Count 213 10^3/uL (130-400); RBC 3.99 10^6/uL (4.36-5.78); RDW-SD 41.8 fL; WBC 8.39 10^3/uL (4.4-10.8)
--- NOTE | 2020-09-25 18:27 | DI.VRAD_ITS ---
PROCEDURE INFORMATION: Exam: CT Abdomen And Pelvis With Contrast Exam date and time: 09/25/2020 5:01 PM Age: 40 years old Clinical indication: Patient HX: Abdominal pain, umbilical hernia TECHNIQUE: Imaging protocol: Computed tomography of the abdomen and pelvis with contrast. COMPARISON: No relevant prior studies available. FINDINGS: Liver: Normal. No mass. Gallbladder and bile ducts: Normal. No calcified stones. No ductal dilation. Pancreas: Normal. No ductal dilation. Spleen: Normal. No splenomegaly. Adrenal glands: Normal. No mass. Kidneys and ureters: Normal. No hydronephrosis. Stomach and bowel: Unremarkable. No obstruction. No mucosal thickening. Appendix: No evidence of appendicitis. Intraperitoneal space: Unremarkable. No free air. No significant fluid collection. Vasculature: Unremarkable. No abdominal aortic aneurysm. Lymph nodes: Unremarkable. No enlarged lymph nodes. Urinary bladder: Unremarkable as visualized. Reproductive: Unremarkable as visualized. Bones/joints: Unremarkable. No acute fracture. Soft tissues: Small umbilical hernia containing fat. Area of hyperattenuation and stranding within the herniated fat raises suspicion for incarceration (series 4, image 44). IMPRESSION: Small umbilical hernia containing fat. Area of hyperattenuation and stranding within the herniated fat raises suspicion for incarceration. Dictated and Authenticated by: Judd Whitney MD. Ordering:JULIAN Han MD
[2020-09-25 19:07] VITALS: BP 115/76; PULSE 74; RESP 16; O2SAT 99
== END 2020-09-25 19:11 | disposition home or self-care (01) ==
PROVIDERS: Emergency Provider Registered Nurse Emergency; PCP Family Medicine
DX: K42.0 Umbilical hernia with obstruction, without gangrene (principal)
CPT/HCPCS: 36415; 80053; 83690; 96360; 96361; 99285; 74177; 83735; 85025; 99284; J3490

== ENCOUNTER 2021-09-11 06:19 | Observation (INO) | payer MEDICAID, SELFPAY ==
[2021-09-11 06:28] VITALS: BP 145/94; PULSE 84; RESP 20; O2SAT 100
[2021-09-11] MEDS: Ketorolac 30 MG/ML VIAL IM (06:45)
[2021-09-11] MEDS: Lactated Ringers 500 ML IV (06:52)
[2021-09-11 07:03] LABS: Abs Immature Grans 0.02 10^3/uL (0.0-0.06); Absolute Basophil Count 0.05 10^3/uL (0.0-0.2); Absolute Eosinophil Count 0.19 10^3/uL (0.0-0.7); Absolute Lymphocyte Count 3.95 10^3/uL (1.2-3.4); Absolute Monocyte Count 0.67 10^3/uL (0.1-0.8); Absolute Neutrophil Count 4.58 10^3/uL (1.2-6.7); Basophils % 0.5; HCT 42.2 % (40.0-50.0); HGB 15.1 g/dL (13.5-17.5); Immature Grans % 0.2; Lymphocytes % 41.8; MCH 32.3 pg (27.0-33.0); MCHC 35.8 % (32.0-36.0); MCV 90 fL (80-95); MPV 10.5 fL (8.0-11.0); Monocytes % 7.1; Neutrophils % 48.4; Platelet Count 228 10^3/uL (130-400); RBC 4.67 10^6/uL (4.36-5.78); RDW 11.6 % (11.8-14.1); RDW-SD 38.7 fL; WBC 9.46 10^3/uL (4.4-10.8)
--- NOTE | 2021-09-11 07:07 | W.ED.GENAD ---
Discharge Plan Disposition Patient Disposition: STILL A PATIENT Condition: Serious Discharge Details Primary Care Provider: Karan Hunt ED Provider: Fransico Orellana Home Meds and New Rx's Prescriptions: No Action nicotine (polacrilex) 4 mg gum 4 mg BC Q2H PRN (Reason: nicotine cravings) Qty: 50 3RF naproxen [Naprosyn] 500 mg tablet 500 mg PO BID PRN (Reason: pain) Qty: 60 0RF buprenorphine-naloxone 12-3 mg Film 1 film BUCCAL Q24H Medical Decision Making 715 --41-year-old male here with sudden onset severe right flank pain with associated hematuria. Patient has right CVA tenderness. Concern for acute renal colic versus obstructed stone. Plan to check labs. Patient was initially given Toradol 30 mg IM while IV was being established. He continued to have severe pain. Dilaudid 1 mg and Toradol 15 mg IV administered. Plan to obtain CT of the abdomen and pelvis renal protocol. 739 --labs reviewed and hypokalemia noted. Will give potassium chloride 20 mEq IV and 20 mEq by mouth. Lab Data Lab results reviewed: Yes I reviewed the patient's lab results. Labs: Laboratory Tests Range/Units 09/11/21 09/11/21 06:45 06:45 WBC (4.4-10.8) 10^3/uL 9.46 RBC (4.36-5.78) 10^6/uL 4.67 Hgb (13.5-17.5) g/dL 15.1 Hct (40.0-50.0) % 42.2 MCV (80-95) fL 90 MCH (27.0-33.0) pg 32.3 MCHC (32.0-36.0) % 35.8 RDW (11.8-14.1) % 11.6 L Plt Count (130-400) 10^3/uL 228 MPV (8.0-11.0) fL 10.5 Immature Gran % 0.2 Neutrophils % 48.4 Lymphocytes % 41.8 Monocytes % 7.1 Eosinophils % 2.0 Basophils % 0.5 Nucleated RBC % (0.0-0.3) % 0.0 Absolute Neutrophils (1.2-6.7) 10^3/uL 4.58 Absolute Lymphocytes (1.2-3.4) 10^3/uL 3.95 H Absolute Monocytes (0.1-0.8) 10^3/uL 0.67 Absolute Eosinophils (0.0-0.7) 10^3/uL 0.19 Absolute Basophils (0.0-0.2) 10^3/uL 0.05 Sodium (136-145) mmol/L 137 Potassium (3.5-5.1) mmol/L 2.8 L* Chloride (98-107) mmol/L 99 Carbon Dioxide (21.0-32.0) mmol/L 27.7 Anion Gap (3-11) mmol/L 10.3 BUN (7-18) mg/dL 14 Creatinine (0.70-1.30) mg/dL 1.3 Estimated GFR/1.73 m2 (mL/min/1.73m2) >= 60.00 Glucose (74-106) mg/dL 150 H Calcium (8.5-10.1) mg/dL 9.1 Total Bilirubin (0.2-1.0) mg/dL 0.9 AST (15-37) U/L 18 ALT (16-63) U/L 24 Alkaline Phosphatase (46-116) U/L 59 Total Protein (6.4-8.2) g/dL 7.7 Albumin (3.4-5.0) g/dL 3.9 HPI General Mode of arrival: ambulatory. Date/Time Provider Initiated Documentation: 09/11/21 06:23. Limitations to Documentation: no limitations. Information obtained by: patient. HPI Narrative: 41-year-old male here with severe right flank pain. Pain started around 530 and has persisted. No modifiers. Pain is sharp. He has associated hematuria. No history of renal stones in the past. No associated nausea or vomiting. No fever. 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 Related Data Home Medications Medication Instructions Recorded Confirmed nicotine (polacrilex) 4 mg gum 4 mg buccal Q2H PRN nicotine 11/08/19 09/25/20 cravings #50 ea buprenorphine 12 mg-naloxone 3 mg 1 film buccal Q24H 06/14/20 09/11/21 sublingual film naproxen 500 mg tablet (Naprosyn) 500 mg PO BID PRN pain #60 tabs 03/16/21 Previous Rx's Medication Instructions Recorded nicotine (polacrilex) 4 mg gum 4 mg buccal Q2H PRN nicotine 11/08/19 cravings #50 ea naproxen 500 mg tablet (Naprosyn) 500 mg PO BID PRN pain #60 tabs 03/16/21 Allergies Allergy/AdvReac Type Severity Reaction Status Date / Time No Known Allergies Allergy Verified 09/11/21 06:31 General Stated Complaint: FlankPain HERLINDA: 3 Review of Systems Narrative: unable to obtain complete ros secondary to acuity of condition PFSH All Active Problems Medial epicondyle apophysitis due to overuse (Acute) Encounter for annual health examination (Acute) Left wrist sprain (Acute) Recurrent umbilical hernia with incarceration (Acute) Visit for suture removal (Acute) Finger laceration (Acute) Carpal tunnel syndrome, bilateral (Acute) Polyarthritis (Acute) Family history of cardiovascular disease (Acute) Low back pain (Acute) Iliopsoas abscess (Acute) Medical History History of opioid abuse Tobacco use Family History Father Substance abuse Heart disease Mother Anxiety Depression Diabetes Social History Smoking/Tobacco Use Status: Current every day Tobacco Type: cigarettes Quit status: considering quitting Smoking risk assessment performed?: Yes Alcohol Intake: current Alcohol Intake frequency: holidays/special occasions only Alcohol type: beer Drug use: Current Sobriety Substance use type: does not use and opiates Details: History of IV Drug Use, on Suboxone Household members: significant other Housing: house Number of Children: 3 Communication Needs: None Do you need help understanding health information?: Rarely current occupation: [employer] Sexually active: Yes Do you think of yourself as: straight/heterosexual Current gender identity: male What is your relationship status?: living with partner How often do you get together with friends or relatives?: three or more times per week Panel score (0-1 are the most socially isolated patients): 2 What type of physical activity do you participate in: other Details: physically active at work Seatbelt use: always 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 Working smoke detector in home: Yes Fire extinguisher in home: Yes Carbon monox detector in home: Yes Do you feel safe at home: Yes Do you feel safe in your relationship?: Yes Exam Const General: cooperative, well developed, acute distress and other (in pain) Orientation: alert and awake HENUT Mouth: moist mucous membranes Eyes Conjunctivae: normal conjunctivae Sclera: normal sclerae Neck Neck: trachea midline and supple Resp Auscultation: clear to auscultation bilaterally, no rales, no rhonchi and no wheezes Cardio Rhythm: regular rhythm GI Palpation: soft, not firm, no guarding, no masses, not rigid and nontender General: CVA tenderness on the right Skin General skin exam: no rashes or lesions noted Neuro General: patient alert, patient awake and tone normal Extrem General: no edema Psych Appearance: grossly normal Mental Status: mental status grossly normal Course Vital Signs Vital signs: Vital Signs Pulse 84 09/11/21 06:28 Respiratory Rate 20 09/11/21 06:28 Blood Pressure 145/94 H 09/11/21 06:28 Pulse Oximetry 100 09/11/21 06:28 Pulse 84 09/11/21 06:28 Respiratory Rate 20 09/11/21 06:28 Respiratory Effort Non-Labored 09/11/21 06:31 Blood Pressure 145/94 H 09/11/21 06:28 Blood Pressure Position Sitting 09/11/21 06:28 Pulse Oximetry 100 09/11/21 06:28 Oxygen Delivery Method Room Air 09/11/21 06:28 Oxygen Flow Rate 0 09/11/21 06:28 Pain Level 10 09/11/21 06:45
[2021-09-11] MEDS: HYDROmorphone 2 MG/ML VIAL 1 MG IVP ×2 (07:11→08:26)
[2021-09-11] MEDS: Ketorolac 15 MG/ML VIAL IVP (07:12)
[2021-09-11 07:26] LABS: ALT 24 U/L (16-63); AST 18 U/L (15-37); Albumin 3.9 g/dL (3.4-5.0); Alkaline Phosphatase 59 U/L (46-116); Anion Gap 10.3 mmol/L (3-11); BUN 14 mg/dL (7-18); Bilirubin, Total 0.9 mg/dL (0.2-1.0); CO2 27.7 mmol/L (21.0-32.0); CREATININE 1.3 mg/dL (0.70-1.30); Calcium 9.1 mg/dL (8.5-10.1); Chloride 99 mmol/L (98-107); Glucose 150 mg/dL (74-106); Sodium 137 mmol/L (136-145); Total Protein 7.7 g/dL (6.4-8.2)
[2021-09-11 07:29] LABS: Potassium 2.8 mmol/L (3.5-5.1)
[2021-09-11] MEDS: Potassium Chloride 20 MEQ TABCR PO (07:45)
[2021-09-11 07:47] VITALS: BP 135/94; PULSE 75; RESP 18; TEMP 37; O2SAT 99
--- NOTE | 2021-09-11 07:49 | DI.CT_ITS ---
Exam(s) CT RENAL COLIC WO EXAM: CT RENAL COLIC WO CLINICAL HISTORY: left flank pain, hematuria. TECHNIQUE: Imaging Protocol: Axial computed tomography images with coronal and sagittal reformatted images were created and reviewed CONTRAST MATERIAL: Intravenous: none Oral: None COMPARISON: CT CT ABDOMEN PELVIS W from 09/25/2020 FINDINGS: VISUALIZED LUNG BASES: No nodules nor pleural effusions evident. ABDOMEN: There is no ascites. LIVER: There are no obvious focal hepatic lesions evident of this noninfused study. GALLBLADDER/BILIARY: No obvious gallbladder pathology. CBD is not dilated. PANCREAS: No evidence of pancreatic mass nor dilatation of the pancreatic duct. SPLEEN: Spleen is not enlarged. No obvious intrasplenic lesions. ADRENALS: There are no significant adrenal masses. KIDNEYS:Left kidney unremarkable. There is mild right-sided hydronephrosis and hydroureter. This is related to a calculus in the lower right ureter just above the UVJ, this calculus measuring 3 millim eters. No calculi seen in the nondistended urinary bladder.. ABDOMINAL AORTA: Abdominal aorta is not enlarged. LYMPH NODES: There is no retroperitoneal nor paraaortic adenopathy. ABDOMINAL WALL: Again noted is a fat only containing anterior abdominal wall umbilical hernia. GI: There is no evidence of bowel obstruction, free air, nor abscess. PELVIS: LYMPH NODES: There is no intrapelvic nor inguinal adenopathy. GI: No evidence of appendicitis.No evidence of sigmoid diverticulitis. URINARY BLADDER: No calculi nor obvious masses evident REPRODUCTIVE: Prostate gland is not enlarged. Seminal vesicles unremarkable OSSEOUS: No significant osseous lesions. IMPRESSION: 1. The main acute finding here is a 3 millimeter calculus in the lower right ureter just above the UV J. There is mild dilatation of the right collecting system above this level. 2. No calculi in the left collecting system. No other focal renal findings. 3. No evidence of acute appendicitis. Called by myself to ER provider RADIATION DOSE DELIVERED: 766.19mGy.cm Total DLP DATA REPOSITORY: All CT scans at this facility are submitted to the National Radiology Data Registry (NRDR) Dose Index Registry (DIR) with the [employer] (ACR). RADIATION OPTIMIZATION: All CT scans at this facility use at least one of these dose optimization te chniques: automated exposure control; mA and/or kV adjustment per patient size (includes targeted exa ms where dose is matched to clinical indication); or iterative reconstruction.
[2021-09-11] MEDS: POTASSIUM CHLORIDE 20 MEQ/100 ML BAG 50 MEQ IVPB ×2 (07:50→10:54)
--- NOTE | 2021-09-11 08:06 | ED.PROG_ITS ---
Date of service: 09/11/21 Time of Service: 08:00 Medical Decision Making 0800 --please see Dr. Orellana's note for initial presentation, exam and plan. 41-year-old male with 3 mm ureteral stone above the right UVJ. He is on Suboxone and was given Toradol x2 and Dilaudid x1 but now with return of pain. We will give an additional dose of Dilaudid and reassess. 0855 --patient screaming and moaning in pain. Will likely need to admit for pain control due to opioid antagonist property of suboxone. Will give 10mg oxycodone PO and IV tylenol. 0930 --patient had brief relief of pain and now it is returning and he is moaning again. Will admit for intractable pain. He has been unable to provide a urine sample. 1015 --discussed case with Dr. Richardson. Recommends to keep patient n.p.o. as he might need ureteral stent. Case discussed with Dr. Mo who accepts patient for admission. Agreeable with plan for oral pain control as needed 1045 --patient pain much improved after 15 mg of oxycodone Medical Records Medical records reviewed: Yes I reviewed the patient's medical records. Imaging Data Radiologic Study: Radiologist's impression: CT RENAL COLIC WO CLINICAL HISTORY: ? left flank pain, hematuria. ? TECHNIQUE:? Imaging Protocol: Axial computed tomography images with coronal and sagittal reformatted images were created and reviewed CONTRAST MATERIAL:? Intravenous: none Oral: None COMPARISON:? CT CT ABDOMEN ? PELVIS W from 09/25/2020 FINDINGS: VISUALIZED LUNG BASES: No nodules nor pleural effusions evident.? ABDOMEN: There is no ascites. LIVER: There are no obvious focal hepatic lesions evident of this noninfused study.? GALLBLADDER/BILIARY: No obvious gallbladder pathology.? CBD is not dilated. PANCREAS: No evidence of pancreatic mass nor dilatation of the pancreatic duct.? SPLEEN: Spleen is not enlarged.? No obvious intrasplenic lesions.? ADRENALS: There are no significant adrenal masses. KIDNEYS:Left kidney unremarkable.? There is mild right-sided hydronephrosis and hydroureter.? This is related to a calculus in the lower right ureter just above the UVJ, this calculus measuring 3 millimeters.? No calculi seen in the nondistended urinary bladder.. ABDOMINAL AORTA: Abdominal aorta is not enlarged. LYMPH NODES: There is no retroperitoneal nor paraaortic adenopathy. ABDOMINAL WALL: Again noted is a fat only containing anterior abdominal wall umbilical hernia. GI: There is no evidence of bowel obstruction, free air, nor abscess. PELVIS:? LYMPH NODES: There is no intrapelvic nor inguinal adenopathy. GI: No evidence of appendicitis.No evidence of sigmoid diverticulitis. URINARY BLADDER: No calculi nor obvious masses evident REPRODUCTIVE: Prostate gland is not enlarged.? Seminal vesicles unremarkable OSSEOUS: No significant osseous lesions. IMPRESSION: 1. The main acute finding here is a 3 millimeter calculus in the lower right ureter just above the UVJ.? There is mild dilatation of the right collecting system above this level. 2. No calculi in the left collecting system.? No other focal renal findings. 3.? No evidence of acute appendicitis. Lab Data Lab results reviewed: Yes I reviewed the patient's lab results. Labs: Laboratory Tests Range/Units 09/11/21 09/11/21 06:45 06:45 WBC (4.4-10.8) 10^3/uL 9.46 RBC (4.36-5.78) 10^6/uL 4.67 Hgb (13.5-17.5) g/dL 15.1 Hct (40.0-50.0) % 42.2 MCV (80-95) fL 90 MCH (27.0-33.0) pg 32.3 MCHC (32.0-36.0) % 35.8 RDW (11.8-14.1) % 11.6 L Plt Count (130-400) 10^3/uL 228 MPV (8.0-11.0) fL 10.5 Immature Gran % 0.2 Neutrophils % 48.4 Lymphocytes % 41.8 Monocytes % 7.1 Eosinophils % 2.0 Basophils % 0.5 Nucleated RBC % (0.0-0.3) % 0.0 Absolute Neutrophils (1.2-6.7) 10^3/uL 4.58 Absolute Lymphocytes (1.2-3.4) 10^3/uL 3.95 H Absolute Monocytes (0.1-0.8) 10^3/uL 0.67 Absolute Eosinophils (0.0-0.7) 10^3/uL 0.19 Absolute Basophils (0.0-0.2) 10^3/uL 0.05 Sodium (136-145) mmol/L 137 Potassium (3.5-5.1) mmol/L 2.8 L* Chloride (98-107) mmol/L 99 Carbon Dioxide (21.0-32.0) mmol/L 27.7 Anion Gap (3-11) mmol/L 10.3 BUN (7-18) mg/dL 14 Creatinine (0.70-1.30) mg/dL 1.3 Estimated GFR/1.73 m2 (mL/min/1.73m2) >= 60.00 Glucose (74-106) mg/dL 150 H Calcium (8.5-10.1) mg/dL 9.1 Total Bilirubin (0.2-1.0) mg/dL 0.9 AST (15-37) U/L 18 ALT (16-63) U/L 24 Alkaline Phosphatase (46-116) U/L 59 Total Protein (6.4-8.2) g/dL 7.7 Albumin (3.4-5.0) g/dL 3.9 Sign Out Sign Out Data: Sign Out Comment: followup on ct renal protocol and reassess pt for disposition. Last updated by Fransico Orellana MD at 09/11/21 07:42 Discharge Plan Disposition Patient Disposition: [facility] INPATIENT Condition: Good Discharge Details Clinical Impression: Right ureteral stone, Intractable pain Admit Date/Time: 09/11/21 10:17 Admit Provider: Magdy Roman Attending Provider: Magdy Roman Primary Care Provider: Karan Hunt ED Provider: Olivia Solis Discharge Data Discharge Date/Time-TO BE ENTERED AT DEPARTURE: 09/11/21 11:12
[2021-09-11] MEDS: Lactated Ringers 1,000 ML 1000 ML IV (08:26)
[2021-09-11] MEDS: ACETAMINOPHEN 1,000 MG/100 ML BTL 400 MG IVPB (09:06)
[2021-09-11] MEDS: oxyCODONE 10 MG TAB PO (09:07)
[2021-09-11 09:11] VITALS: BP 129/79; PULSE 94; RESP 18; TEMP 36; O2SAT 98
[2021-09-11] MEDS: oxyCODONE 5 MG TAB 15 MG PO (10:05)
[2021-09-11 10:41] VITALS: BP 130/68; PULSE 88; RESP 18; TEMP 36.5; O2SAT 99
[2021-09-11] MEDS: Normal Saline 1,000 ML 150 ML IV (10:54)
[2021-09-11] MEDS: Tamsulosin 0.4 MG CAPCR PO (10:56)
[2021-09-11 11:22] LABS: Source Nasal/Nares
[2021-09-11 11:24] VITALS: BP 150/110; PULSE 95; RESP 18; TEMP 36.7; O2SAT 98
[2021-09-11] MEDS: HYDROmorphone 2 MG/ML SYR IVP (11:32)
[2021-09-11] MEDS: Normal Saline Flush 10 ML SYR IVP (11:32)
[2021-09-11 12:31] LABS: COVID-19 PCR POSITIVE (Negative)
--- NOTE | 2021-09-11 13:23 | W.PM.HP.N ---
Date of service: 09/11/21 Time of Service: 13:23 Assessment and Plan Assessment and plan (1) Right ureteral stone: Status: Acute Assessment and plan: Jovan arrived to the med surg unit and announced he was pain free and wants to go home. We will give him strainers and advise to strain all urine. History of Present Illness History of Present Illness Chief Complaint: Right flank pain Narrative: Jovan is a 41 alfredo old male that had a sudden onset of severe right flank pain. Pain started around 530 and has persisted.? No modifiers.? Pain is sharp.? He has associated hematuria.? No history of renal stones in the past.? No associated nausea or vomiting.? No fever. CT positive renal stone, admitted for pain control. Review of Systems All systems reviewed & are unremarkable except as noted in HPI and below PFSH All Active Problems (Updated 09/11/21 @ 14:04 by Alisha Urrutia NP) Right ureteral stone (Acute) COVID-19 (Acute) Medial epicondyle apophysitis due to overuse (Acute) Encounter for annual health examination (Acute) Left wrist sprain (Acute) Recurrent umbilical hernia with incarceration (Acute) Visit for suture removal (Acute) Finger laceration (Acute) Carpal tunnel syndrome, bilateral (Acute) Polyarthritis (Acute) Family history of cardiovascular disease (Acute) Low back pain (Acute) Iliopsoas abscess (Acute) Medical History History of opioid abuse Tobacco use Family History Father Substance abuse Heart disease Mother Anxiety Depression Diabetes Social History Smoking/Tobacco Use Status: Current every day Tobacco Type: cigarettes Quit status: considering quitting Smoking risk assessment performed?: Yes Alcohol Intake: current Alcohol Intake frequency: holidays/special occasions only Alcohol type: beer Drug use: Current Sobriety Substance use type: does not use and opiates Details: History of IV Drug Use, on Suboxone Household members: significant other Housing: house Number of Children: 3 Communication Needs: None Do you need help understanding health information?: Rarely current occupation: [employer] Sexually active: Yes Do you think of yourself as: straight/heterosexual Current gender identity: male What is your relationship status?: living with partner How often do you get together with friends or relatives?: three or more times per week Panel score (0-1 are the most socially isolated patients): 2 What type of physical activity do you participate in: other Details: physically active at work Seatbelt use: always 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 Working smoke detector in home: Yes Fire extinguisher in home: Yes Carbon monox detector in home: Yes Do you feel safe at home: Yes Do you feel safe in your relationship?: Yes Meds Allergies and Home Medications Allergies Allergy/AdvReac Type Severity Reaction Status Date / Time No Known Allergies Allergy Verified 09/11/21 06:31 Home Medications Medication Instructions Recorded Confirmed Type nicotine (polacrilex) 4 mg gum 4 mg buccal Q2H PRN nicotine 11/08/19 09/25/20 Rx cravings #50 ea buprenorphine 12 mg-naloxone 3 mg 1 film buccal Q24H 06/14/20 09/11/21 History sublingual film naproxen 500 mg tablet (Naprosyn) 500 mg PO BID PRN pain #60 tabs 03/16/21 Rx Exam Const General: cooperative, well developed and acute distress Orientation: alert and awake HENMT Mouth: moist mucous membranes Eyes Conjunctivae: normal conjunctivae Sclera: normal sclerae Neck Neck: trachea midline and supple Resp Auscultation: clear to auscultation bilaterally, no rales, no rhonchi and no wheezes Cardio Rhythm: regular rhythm GI Palpation: soft, not firm, no guarding, no masses, not rigid and nontender Skin General skin exam: no rashes or lesions noted Neuro General: patient alert, patient awake and tone normal Extrem General: no edema Psych Appearance: grossly normal Mental Status: mental status grossly normal Results Labs Result diagrams: 09/11/21 06:45 09/11/21 06:45 Labs: Laboratory Results - last 24 hr 09/11/21 09/11/21 09/11/21 06:45 06:45 10:51 WBC 9.46 RBC 4.67 Hgb 15.1 Hct 42.2 MCV 90 MCH 32.3 MCHC 35.8 RDW 11.6 L Plt Count 228 MPV 10.5 Immature Gran % 0.2 Neutrophils % 48.4 Lymphocytes % 41.8 Monocytes % 7.1 Eosinophils % 2.0 Basophils % 0.5 Nucleated RBC % 0.0 Absolute Neutrophils 4.58 Absolute Lymphocytes 3.95 H Absolute Monocytes 0.67 Absolute Eosinophils 0.19 Absolute Basophils 0.05 Sodium 137 Potassium 2.8 L* Chloride 99 Carbon Dioxide 27.7 Anion Gap 10.3 BUN 14 Creatinine 1.3 Estimated GFR/1.73 m2 >= 60.00 Glucose 150 H Calcium 9.1 Total Bilirubin 0.9 AST 18 ALT 24 Alkaline Phosphatase 59 Total Protein 7.7 Albumin 3.9 COVID-19 Source Nasal/Nares SARS-CoV-2 (PCR) POSITIVE A* Last Vital Signs Temp 36.7 C 09/11/21 11:24 Pulse 95 H 09/11/21 11:24 Resp 18 09/11/21 11:24 BP 150/110 H 09/11/21 11:24 Pulse Ox 98 09/11/21 11:24
[2021-09-11 13:47] LABS: Bilirubin Negative (Negative); Blood Small (Negative); Clarity Clear (Clear); Glucose Negative (Negative); Ketones 15 mg/dL (Negative); Leukocyte Esterase Negative (Negative); Nitrite Negative (Negative); Urobilinogen 0.2 EU/dL (Up TO 0.2)
[2021-09-11 14:00] LABS: Bacteria Negative HPF (Negative); C & S Indicated? No; Casts Negative LPF (Negative); Crystals Negative HPF (Negative); Epithelial Cells Negative HPF (Negative); Mucus Negative (Negative); RBC 0-2 HPF (0-2); WBC 0-2 HPF (0-5)
--- NOTE | 2021-09-11 14:03 | W.PM.DS.N ---
Date of service: 09/11/21 Time of Service: 14:03 DS: Diagnosis Discharge Diagnosis (1) COVID-19: Start date: 09/11/21 Start time: 14:05 Status: Acute (2) Right ureteral stone: Status: Acute Discharge Plan Disposition Patient Disposition: HOME Condition: Good Discharge Details Reason For Visit: Right Ureteral Stone Admit Date/Time: 09/11/21 10:17 Admit Provider: Magdy Roman Attending Provider: Magdy Roman Primary Care Provider: Karan Hunt [facility] Course Hospital Course: 41-year-old male patient with past medical history of iliopsoas abscess presented to the [facility] emergency department with the complaint of severe right flank pain.? Pain started around 530 and has persisted.? No modifiers.? Pain is sharp.? He has associated hematuria.? No history of renal stones in the past.? No associated nausea or vomiting.? No fever. His CT was ppsitive for kidney stone. He was admitted for pain control. 15 minutes after arrival to med surg floor he announced he was pain free and wanted to go home. Strainers given to take home. Follow up with urology and PCP. Dr Richardson notified patient went home. Home Meds and New Rx's Prescriptions: Continued nicotine (polacrilex) 4 mg gum 4 mg BC Q2H PRN (Reason: nicotine cravings) Qty: 50 3RF naproxen [Naprosyn] 500 mg tablet 500 mg PO BID PRN (Reason: pain) Qty: 60 0RF buprenorphine-naloxone 12-3 mg Film 1 film BUCCAL Q24H Discharge Instructions Instructions: Kidney Stones (DC), COVID-19 (Coronavirus Disease 2019) (DC) Additional Instructions: Strain all urine; you may have pain voiding when the stone travels from the bladder out through the urethra; if you are unable to urinate or have a fever; return to the emergency department. Isolate for 5 days, longer if symptoms persist. Stand Alone Forms: Nursing Discharge Form Referrals: Neel Richardson MD [ [facility] STAFF PHYSICIAN] - (DR RICHARDSON'S OFFICE WILL CALL YOU WITH AN APPOINTMENT ) Activity:: Isolate for 5 days Equipment/Supplies:: No Equipment Needed Diet:: As Tolerated Discharge Orders Discharge Orders: Discharge Order (Routine); Ordered 09/11/21 Ordered By: Alisha Urrutia Discharge Data Discharge Date/Time-TO BE ENTERED AT DEPARTURE: 09/11/21 15:05 DS: Summary Time Spent with Patient providing and/or coordinating discharge services: Less than 30 minutes Status at Discharge Functional status at discharge: independent ambulation Overall status at discharge: patient is back to baseline Mental Status: mental status grossly normal Speech and Movement: speech and movement normal Mood: congruent mood Affect: normal affect Exam Psych Mental Status: mental status grossly normal Speech and Movement: speech and movement normal Mood: congruent mood Affect: normal affect DS: Data Vitals/I&O Vitals and I&O: Vital Signs Temperature 36.7 C 09/11/21 11:24 Temperature Source Tympanic 09/11/21 11:24 Pulse 95 H 09/11/21 11:24 Pulse Rhythm Regular 09/11/21 11:25 Respiratory Rate 18 09/11/21 11:24 Respiratory Effort 09/11/21 11:25 Respiratory Depth Normal 09/11/21 11:25 Respiratory Pattern Normal 09/11/21 11:25 Blood Pressure 150/110 H 09/11/21 11:24 Blood Pressure Position Sitting 09/11/21 06:28 Pulse Oximetry 98 09/11/21 11:24 Oxygen Delivery Method Room Air 09/11/21 11:24 Oxygen Flow Rate 0 09/11/21 11:24 Pain Level 6 09/11/21 11:25 Comment 09/11/21 11:25 Intake & Output 09/10/21 09/11/21 09/11/21 23:59 11:59 23:59 Weight 78.7 kg Data Completed and Pending Labs on day of discharge: Labs from last 24 hours 09/11/21 09/11/21 09/11/21 13:30 10:51 06:45 WBC 9.46 RBC 4.67 Hgb 15.1 Hct 42.2 MCV 90 MCH 32.3 MCHC 35.8 RDW 11.6 L Plt Count 228 MPV 10.5 Immature Gran % 0.2 Neutrophils % 48.4 Lymphocytes % 41.8 Monocytes % 7.1 Eosinophils % 2.0 Basophils % 0.5 Nucleated RBC % 0.0 Absolute Neutrophils 4.58 Absolute Lymphocytes 3.95 H Absolute Monocytes 0.67 Absolute Eosinophils 0.19 Absolute Basophils 0.05 Sodium Potassium Chloride Carbon Dioxide Anion Gap BUN Creatinine Estimated GFR/1.73 m2 Glucose Calcium Total Bilirubin AST ALT Alkaline Phosphatase Total Protein Albumin Urine Color Yellow Urine Clarity Clear Urine pH 8.0 Ur Specific [place] 1.020 Urine Protein Negative Urine Ketones 15 H Urine Blood Small H Urine Nitrite Negative Urine Bilirubin Negative Urine Urobilinogen 0.2 Ur Leukocyte Esterase Negative Urine RBC 0-2 Urine WBC 0-2 Ur Epithelial Cells Negative Urine Crystals Negative Urine Bacteria Negative Urine Casts Negative Urine Mucus Negative Ur Culture Indicated? No Urine Glucose Negative COVID-19 Source Nasal/Nares SARS-CoV-2 (PCR) POSITIVE A* 09/11/21 06:45 WBC RBC Hgb Hct MCV MCH MCHC RDW Plt Count MPV Immature Gran % Neutrophils % Lymphocytes % Monocytes % Eosinophils % Basophils % Nucleated RBC % Absolute Neutrophils Absolute Lymphocytes Absolute Monocytes Absolute Eosinophils Absolute Basophils Sodium 137 Potassium 2.8 L* Chloride 99 Carbon Dioxide 27.7 Anion Gap 10.3 BUN 14 Creatinine 1.3 Estimated GFR/1.73 m2 >= 60.00 Glucose 150 H Calcium 9.1 Total Bilirubin 0.9 AST 18 ALT 24 Alkaline Phosphatase 59 Total Protein 7.7 Albumin 3.9 Urine Color Urine Clarity Urine pH Ur Specific [place] Urine Protein Urine Ketones Urine Blood Urine Nitrite Urine Bilirubin Urine Urobilinogen Ur Leukocyte Esterase Urine RBC Urine WBC Ur Epithelial Cells Urine Crystals Urine Bacteria Urine Casts Urine Mucus Ur Culture Indicated? Urine Glucose COVID-19 Source SARS-CoV-2 (PCR) PFSH All Active Problems (Updated 09/11/21 @ 14:04 by Alisha Urrutia NP) Right ureteral stone (Acute) COVID-19 (Acute) Medial epicondyle apophysitis due to overuse (Acute) Encounter for annual health examination (Acute) Left wrist sprain (Acute) Recurrent umbilical hernia with incarceration (Acute) Visit for suture removal (Acute) Finger laceration (Acute) Carpal tunnel syndrome, bilateral (Acute) Polyarthritis (Acute) Family history of cardiovascular disease (Acute) Low back pain (Acute) Iliopsoas abscess (Acute) Medical History History of opioid abuse Tobacco use Family History Father Substance abuse Heart disease Mother Anxiety Depression Diabetes Social History Smoking/Tobacco Use Status: Current every day Tobacco Type: cigarettes Quit status: considering quitting Smoking risk assessment performed?: Yes Alcohol Intake: current Alcohol Intake frequency: holidays/special occasions only Alcohol type: beer Drug use: Current Sobriety Substance use type: does not use and opiates Details: History of IV Drug Use, on Suboxone Household members: significant other Housing: house Number of Children: 3 Communication Needs: None Do you need help understanding health information?: Rarely current occupation: [employer] Sexually active: Yes Do you think of yourself as: straight/heterosexual Current gender identity: male What is your relationship status?: living with partner How often do you get together with friends or relatives?: three or more times per week Panel score (0-1 are the most socially isolated patients): 2 What type of physical activity do you participate in: other Details: physically active at work Seatbelt use: always 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
== END 2021-09-11 15:05 | disposition home or self-care (01) ==
LOC: ER 10:35 → MS 12:18
PROVIDERS: Student in an Organized Health Care Education/Training Program; Admitting Provider Internal Medicine; Emergency Provider Physician Assistant; PCP Family Medicine; Visit Provider Internal Medicine
DX: N13.2 Hydronephrosis with renal and ureteral calculous obstruction (principal); U07.1 COVID-19; R31.0 Gross hematuria; K42.9 Umbilical hernia without obstruction or gangrene; F17.210 Nicotine dependence, cigarettes, uncomplicated; F11.11 Opioid abuse, in remission; Z79.899 Other long term (current) drug therapy
CPT/HCPCS: 80053; 87635; 96361; 96365; 96366; 96368; 96374; 96375; 96376; 99285; 74176; 81003; 81015; 85025; 99222; G0378; J0131; J1170; J1885; J3480

== ENCOUNTER 2022-04-30 13:50 | Emergency (ER) | payer MEDICAID, SELFPAY ==
[2022-04-30 13:54] VITALS: BP 120/68; PULSE 115; RESP 18; TEMP 36.4; O2SAT 99
--- NOTE | 2022-04-30 14:00 | DI.RAD_ITS ---
Exam(s) XR CHEST 2V PA LATERAL EXAM: XR CHEST 2V PA LATERAL CLINICAL HISTORY: cough TECHNIQUE: 2D digital imaging was performed of the chest. Two images were obtained. PA and lateral views were obtained. COMPARISON: CR CHEST 2 VIEWS PA,LAT from 01/13/2017 FINDINGS: MEDIASTINUM: Normal. HEART: Normal. PULMONARY VASCULATURE: Normal. LUNGS: Clear. PLEURAL SPACE: No pleural effusion or pneumothorax. BONE:Within normal limits for the patient's age. OTHER FINDINGS:Normal. IMPRESSION: No acute pulmonary findings. DATA REPOSITORY: RADIATION DOSE DELIVERED:
--- NOTE | 2022-04-30 15:12 | W.ED.GENAD ---
Discharge Plan Disposition Patient Disposition: Home Discharge Details Clinical Impression: URI (upper respiratory infection) Primary Care Provider: Karan Hunt ED Provider: Valente Arteaga Home Meds and New Rx's Prescriptions: New benzonatate 200 mg capsule 200 mg PO TID PRN (Reason: cough) Qty: 30 0RF albuterol sulfate 90 mcg/actuation aerosol powdr breath activated 2 inh inhalation Q4H PRN (Reason: shortness of breath or wheezing) Qty: 1 0RF prednisone 20 mg tablet 40 mg PO DAILY Qty: 10 0RF Continued naproxen [Naprosyn] 500 mg tablet 500 mg PO BID PRN (Reason: pain) Qty: 90 2RF nicotine (polacrilex) 4 mg gum 4 mg BC Q2H PRN (Reason: nicotine cravings) Qty: 50 3RF buprenorphine-naloxone 12-3 mg Film 1 film BUCCAL Q24H Discharge Instructions Instructions: Upper Respiratory Infection (ED) Additional Instructions: Please stay well well-hydrated and get plenty of rest. If you are continuing to improve you may return to work otherwise if you have any significant worsening of symptoms are still not improved next 24 hours please take an additional day of rest. You may continue to take [id number] medications that match your symptoms and as directed on packaging along with the prescribed medication. If you have severe worsening of symptoms or new symptoms or further concerns feel free to return to the emergency department for reassessment otherwise follow-up with your primary care provider if not improving over the next week. Stand Alone Forms: Work Release Referrals: Karan Hunt DO [Primary Care Provider] - 1 week (As needed for reassessment or if not improving) Discharge Data Discharge Date/Time-TO BE ENTERED AT DEPARTURE: 04/30/22 15:44 Medical Decision Making URI x5 days slightly improving but having continued symptoms patient concerned about lack of improvement. Lung sounds do show diffuse expiratory wheeze consistent with patient's smoking status but do not find focal findings. We will perform chest x-ray but at this time doubt pneumonia and feel patient still has continued viral illness. Patient was negative on POC for COVID or influenza and is outside treatment window. Upon my review of chest x-ray show no acute worrisome findings so will discharge patient with albuterol Tessalon Perles and prednisone prescription. after discussion of diagnosis and plan of care patient has no further needs, questions, or concerns and states clear understanding to return to the emergency department for any worsening symptoms. This documentation was generated using Dialective dictation system, please disregard any oddities of phrase or misspellings. Lab Data Lab results reviewed: Yes I reviewed the patient's lab results. HPI General Mode of arrival: ambulatory. Date/Time Provider Initiated Documentation: 04/30/22 14:04. Limitations to Documentation: no limitations. Information obtained by: patient and RN notes reviewed. History of Present Illness 42 year old M presents to the emergency department with the chief complaint of Cough and cold symptoms , described as moderate, Quality is described as aching, and is localized to the face. Patient started experiencing this day(s) (5) and it has been constant. No relieving factors improve symptom(s), No exacerbating factors reported . Patient did receive the following treatments prior to arrival, other (Jjjh-yio-[id number] meds) Related Data Home Medications Medication Instructions Recorded Confirmed nicotine (polacrilex) 4 mg gum 4 mg buccal Q2H PRN nicotine 11/08/19 04/30/22 cravings #50 ea buprenorphine 12 mg-naloxone 3 mg 1 film buccal Q24H 06/14/20 04/30/22 sublingual film naproxen 500 mg tablet (Naprosyn) 500 mg PO BID PRN pain #90 tabs 03/28/22 04/30/22 albuterol sulfate 90 mcg/actuation 2 inh inhalation Q4H PRN shortness 04/30/22 breath activated powder inhaler of breath or wheezing #1 ea benzonatate 200 mg capsule 200 mg PO TID PRN cough #30 caps 04/30/22 prednisone 20 mg tablet 40 mg PO DAILY #10 tabs 04/30/22 Previous Rx's Medication Instructions Recorded nicotine (polacrilex) 4 mg gum 4 mg buccal Q2H PRN nicotine 11/08/19 cravings #50 ea naproxen 500 mg tablet (Naprosyn) 500 mg PO BID PRN pain #90 tabs 03/28/22 albuterol sulfate 90 mcg/actuation 2 inh inhalation Q4H PRN shortness 04/30/22 breath activated powder inhaler of breath or wheezing #1 ea benzonatate 200 mg capsule 200 mg PO TID PRN cough #30 caps 04/30/22 prednisone 20 mg tablet 40 mg PO DAILY #10 tabs 04/30/22 Allergies Allergy/AdvReac Type Severity Reaction Status Date / Time No Known Allergies Allergy Verified 04/30/22 14:00 General Stated Complaint: RespSymp HERLINDA: 4 Review of Systems Constitutional Constitutional: Reports body ache(s), Denies chills, Denies fever(s), Reports headache(s) and Reports malaise Eyes Eyes: Denies eye discharge ENT Ears, Nose, Mouth, and Throat: Reports as per HPI, Denies ear discharge, Denies otalgia, Reports headache(s), Reports nasal congestion, Denies neck pain, Reports sinus pressure, Reports sore throat and Denies throat swelling Cardiovascular Cardiovascular: Denies chest pain and Denies dyspnea Respiratory Respiratory: Reports cough and Denies dyspnea Musculoskeletal Musculoskeletal: Denies joint swelling and Denies neck pain Integumentary/Breasts Skin/Breast: Denies rash Neurologic Neurologic: Reports headache(s) Allergic/Immunologic Allergic/Immunologic: Denies throat swelling PFSH All Active Problems (Updated 04/30/22 @ 15:20 by Valente Arteaga NP) URI (upper respiratory infection) (Acute) Medial epicondyle apophysitis due to overuse (Acute) Encounter for annual health examination (Acute) Recurrent umbilical hernia with incarceration (Acute) Carpal tunnel syndrome, bilateral (Acute) Polyarthritis (Acute) Family history of cardiovascular disease (Acute) Low back pain (Acute) Medical History History of opioid abuse Tobacco use Family History Father Substance abuse Heart disease Mother Anxiety Depression Diabetes Social History Smoking/Tobacco Use Status: Current every day Tobacco Type: cigarettes Tobacco: How many years used: 25 Smokeless tobacco user: chewing tobacco Quit status: quit date established (April 2022) Smoking risk assessment performed?: Yes Alcohol Intake: current Alcohol Intake frequency: holidays/special occasions only Alcohol type: beer Drug use: Current Sobriety Substance use type: does not use and opiates Details: History of IV Drug Use, on Suboxone Caregiver/Support person: No Household members: significant other Housing: house Communication Needs: None Do you need help understanding health information?: Rarely current occupation: [employer] Pets and animals: Yes (2) Pets and animals: cat(s) Sexually active: Yes Do you think of yourself as: straight/heterosexual Current gender identity: male What is your relationship status?: living with partner How often do you talk on the phone with friends or family?: three or more times per week How often do you get together with friends or relatives?: three or more times per week Do you belong to any clubs or organized social groups?: yes Panel score (0-1 are the most socially isolated patients): 3 What type of physical activity do you participate in: other Details: physically active at work; yoga/stretching; weights Duration: 30-45 minutes/day Frequency: daily Constance/Mormon: Atheist Special constance needs: No Seatbelt use: always Helmet use: Yes 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 Working smoke detector in home: Yes Fire extinguisher in home: Yes Carbon monox detector in home: Yes Do you feel safe at home: Yes Do you feel safe in your relationship?: Yes Exam Const General: cooperative, comfortable and no acute distress Orientation: alert and awake [facility] Head: normal to inspection, normocephalic and atraumatic Ears: hearing grossly normal bilaterally and TM's normal bilaterally General nose exam: external nose normal Face and sinus: no erythema Mouth: oral mucosae normal, no drooling, no muffled voice and no trismus Throat: posterior oropharynx normal Neck Neck: normal visual inspection, full ROM, no lymphadenopathy, no meningeal signs, trachea midline and supple Resp Effort & Inspection: normal respiratory effort, able to speak in complete sentences and cough Quality of cough: dry Auscultation: clear to auscultation bilaterally Cardio Rate: regular rate Rhythm: regular rhythm Heart Sounds: S1 normal, S2 normal, normal S1 and S2, no click, no gallops, no murmurs and no rubs Skin General skin exam: no rashes or lesions noted and dry skin (warm) Neuro General: patient alert, patient awake, patient oriented x3, gait normal and moves all extremities Cognition: normal cognition Speech: speech normal Course Vital Signs Vital signs: Vital Signs Temperature 36.4 C 04/30/22 13:54 Pulse 115 H 04/30/22 13:54 Respiratory Rate 18 04/30/22 13:54 Blood Pressure 120/68 04/30/22 13:54 Pulse Oximetry 99 04/30/22 13:54 Temperature 36.4 C 04/30/22 13:54 Temperature Source Tympanic 04/30/22 13:54 Pulse 115 H 04/30/22 13:54 Respiratory Rate 18 04/30/22 13:54 Respiratory Effort Normal 04/30/22 13:59 Respiratory Depth Normal 04/30/22 13:59 Blood Pressure 120/68 04/30/22 13:54 Blood Pressure Position Sitting 04/30/22 13:54 Pulse Oximetry 99 04/30/22 13:54 Oxygen Delivery Method Room Air 04/30/22 13:54 Oxygen Flow Rate 0 04/30/22 13:54 Pain Level 0 04/30/22 13:54
[2022-04-30 15:42] VITALS: BP 112/81; PULSE 89; RESP 16; TEMP 36.6; O2SAT 95
== END 2022-04-30 15:44 | disposition home or self-care (01) ==
PROVIDERS: Emergency Provider Nurse Practitioner Family; PCP Family Medicine
DX: J06.9 Acute upper respiratory infection, unspecified (principal); F17.210 Nicotine dependence, cigarettes, uncomplicated
CPT/HCPCS: 94640; 99283; 71046; 99284

== ENCOUNTER 2022-05-23 01:33 | Outpatient (CLI) | payer MEDICAID, SELFPAY ==
[2022-05-23 14:27] LABS: Abs Immature Grans 0.01 10^3/uL (0.0-0.06); Absolute Basophil Count 0.03 10^3/uL (0.0-0.2); Absolute Eosinophil Count 0.17 10^3/uL (0.0-0.7); Absolute Lymphocyte Count 2.89 10^3/uL (1.2-3.4); Absolute Monocyte Count 0.53 10^3/uL (0.1-0.8); Absolute Neutrophil Count 3.56 10^3/uL (1.2-6.7); Basophils % 0.4; Eosinophils % 2.4; HCT 40.5 % (40.0-50.0); HGB 14.2 g/dL (13.5-17.5); Immature Grans % 0.1; Lymphocytes % 40.2; MCH 33.3 pg (27.0-33.0); MCHC 35.1 % (32.0-36.0); MCV 95 fL (80-95); MPV 10.5 fL (8.0-11.0); Monocytes % 7.4; Neutrophils % 49.5; RBC 4.27 10^6/uL (4.36-5.78); RDW 12.2 % (11.8-14.1); RDW-SD 41.3 fL; WBC 7.19 10^3/uL (4.4-10.8)
[2022-05-23 14:42] LABS: ESR 13 mm/hr (0-15)
[2022-05-23 15:04] LABS: ALT 22 U/L (16-63); AST 18 U/L (15-37); Albumin 4.1 g/dL (3.4-5.0); Alkaline Phosphatase 61 U/L (46-116); Anion Gap 8.6 mmol/L (3-11); BUN 27 mg/dL (7-18); Bilirubin, Total 0.5 mg/dL (0.2-1.0); C-Reactive Protein 0.78 mg/dL (0.0-0.3); CO2 27.4 mmol/L (21.0-32.0); CREATININE 1.4 mg/dL (0.70-1.30); Calcium 9.4 mg/dL (8.5-10.1); Chloride 102 mmol/L (98-107); Estimated GFR 65.16 (mL/min/1.73m2); Glucose 110 mg/dL (74-106); Potassium 3.7 mmol/L (3.5-5.1); Sodium 138 mmol/L (136-145); Total Protein 7.4 g/dL (6.4-8.2)
[2022-05-23 15:11] LABS: Platelet Count 207 10^3/uL (130-400)
[2022-05-23 15:12] LABS: Diff Comment Diff Reviewed; RBC Morphology Normal
[2022-05-23 21:51] LABS: Rheumatoid Factor <8.6 IU/mL (<12.0)
[2022-05-24 09:56] LABS: Cyclic Citrullinated Peptide <2.5 U/mL (<5.0)
[2022-05-24 10:42] LABS: HBs Antibody, Quant 4.3 mIU/mL (See Note); Hepatitis B Surface Ab Negative (See Note)
[2022-05-24 10:49] LABS: Hep B Core Antibody Negative (Negative)
[2022-05-24 10:50] LABS: HIV-1/2 Ag & Ab Screen Negative (Negative)
[2022-05-24 12:29] LABS: Hepatitis C Ab w Rflx HCV PCR Reactive (Negative)
[2022-05-24 12:40] LABS: Hepatitis B Surface Ag Negative (Negative)
[2022-05-24 15:33] LABS: ANA Interpretation Negative (Negative)
[2022-05-27 11:29] LABS: TB Interpretation Negative (Negative)
[2022-05-27 12:51] LABS: HCV RNA Qualitative Undetected (Undetected)
== END 2022-05-23 01:34 | disposition home or self-care (01) ==
PROVIDERS: PCP Family Medicine; Visit Provider Student in an Organized Health Care Education/Training Program
DX: M25.541 Pain in joints of right hand (principal); M25.542 Pain in joints of left hand; Z11.4 Encounter for screening for human immunodeficiency virus [HIV]; Z11.59 Encounter for screening for other viral diseases; Z11.1 Encounter for screening for respiratory tuberculosis; R79.89 Other specified abnormal findings of blood chemistry
CPT/HCPCS: 36415; 80053; 85652; 86200; 86704; 86706; 86803; 87340; 87389; 87522; 85025; 86038; 86140; 86431; 86480

== ENCOUNTER 2022-08-18 14:14 | Emergency (ER) | payer MEDICAID, SELFPAY ==
[2022-08-18 14:16] VITALS: BP 113/68; PULSE 68; RESP 18; TEMP 36.3; O2SAT 100
--- NOTE | 2022-08-18 14:21 | W.ED.GENAD ---
Discharge Plan Disposition Patient Disposition: Home Discharge Details Clinical Impression: Tick bite Primary Care Provider: Karan Hunt ED Provider: Kelvin Heredia Home Meds and New Rx's Prescriptions: Continued naproxen [Naprosyn] 500 mg tablet 500 mg PO BID PRN (Reason: pain) Qty: 90 2RF nicotine (polacrilex) 4 mg gum 4 mg BC Q2H PRN (Reason: nicotine cravings) Qty: 50 3RF benzonatate 200 mg capsule 200 mg PO TID PRN (Reason: cough) Qty: 30 0RF albuterol sulfate 90 mcg/actuation aerosol powdr breath activated 2 inh inhalation Q4H PRN (Reason: shortness of breath or wheezing) Qty: 1 0RF prednisone 20 mg tablet 40 mg PO DAILY Qty: 10 0RF buprenorphine-naloxone 12-3 mg Film 1 film BUCCAL Q24H Discharge Instructions Instructions: Tick Bite (ED) Additional Instructions: You were seen in the emergency department for your tick bite. As we discussed, please return to the emergency department if you develop fevers shortness of breath or any chest pain. Please also return if you develop significant redness around your tick bite. Discharge Data Discharge Date/Time-TO BE ENTERED AT DEPARTURE: 08/18/22 14:37 Medical Decision Making This is an overall very well-appearing hypertensive but normothermic and not tachycardic 42-year-old male with recent tick bite to left posterior knee less than 1 hour and not meeting criteria for prophylaxis for Lyme with doxycycline.? No shortness of breath nor chest pain nor palpitations to suggest Lyme carditis.? No fevers to suggest early disseminated Lyme.? No joint pain to suggest Lyme arthritis.? We will discharge patient with return indications including any shortness of breath weakness or fevers.? No pain out of proportion to suggest necrotizing soft tissue infection. Otherwise I advised PCP follow-up as needed.? I advised the patient that if he develops significant swelling or pain that this could represent cellulitis and that he should return to the ED. I also advised ED return if he developed a significant rash consistent with erythema migrans. HPI General Date/Time Provider Initiated Documentation: 08/18/22 14:20. HPI Narrative: This is a 42-year-old male with a remote history of opiate abuse currently on bupropion now in the emergency department in the setting of recent tick bite. Patient reports that he was indoors and going to the bathroom. He felt something was crawling on his left leg. He reached down and noticed a tick crawling on his left leg. Subsequently the tick bit his left leg behind his left knee. He was able to remove it within several minutes. He has had no systemic symptoms of fevers chills nausea vomiting chest pain or shortness of breath. He cleaned the area subsequently with an alcohol wipe. He denies any other tick bites. No recent trauma. Related Data Home Medications Medication Instructions Recorded Confirmed nicotine (polacrilex) 4 mg gum 4 mg buccal Q2H PRN nicotine 11/08/19 04/30/22 cravings #50 ea buprenorphine 12 mg-naloxone 3 mg 1 film buccal Q24H 06/14/20 08/18/22 sublingual film naproxen 500 mg tablet (Naprosyn) 500 mg PO BID PRN pain #90 tabs 03/28/22 04/30/22 albuterol sulfate 90 mcg/actuation 2 inh inhalation Q4H PRN shortness 04/30/22 breath activated powder inhaler of breath or wheezing #1 ea benzonatate 200 mg capsule 200 mg PO TID PRN cough #30 caps 04/30/22 prednisone 20 mg tablet 40 mg PO DAILY #10 tabs 04/30/22 Previous Rx's Medication Instructions Recorded nicotine (polacrilex) 4 mg gum 4 mg buccal Q2H PRN nicotine 11/08/19 cravings #50 ea naproxen 500 mg tablet (Naprosyn) 500 mg PO BID PRN pain #90 tabs 03/28/22 albuterol sulfate 90 mcg/actuation 2 inh inhalation Q4H PRN shortness 04/30/22 breath activated powder inhaler of breath or wheezing #1 ea benzonatate 200 mg capsule 200 mg PO TID PRN cough #30 caps 04/30/22 prednisone 20 mg tablet 40 mg PO DAILY #10 tabs 04/30/22 Allergies Allergy/AdvReac Type Severity Reaction Status Date / Time No Known Allergies Allergy Verified 04/30/22 14:00 General Stated Complaint: InsectBite HERLINDA: 4 PFSH All Active Problems (Updated 08/18/22 @ 14:30 by Neel Jackson MD) Tick bite (Acute) Medial epicondyle apophysitis due to overuse (Acute) Encounter for annual health examination (Acute) Recurrent umbilical hernia with incarceration (Acute) Carpal tunnel syndrome, bilateral (Acute) Polyarthritis (Acute) Family history of cardiovascular disease (Acute) Low back pain (Acute) Medical History History of opioid abuse Tobacco use Family History Father Substance abuse Heart disease Mother Anxiety Depression Diabetes Social History Smoking/Tobacco Use Status: Current every day Tobacco Type: cigarettes Tobacco: How many years used: 25 Smokeless tobacco user: chewing tobacco Quit status: quit date established (April 2022) Smoking risk assessment performed?: Yes Alcohol Intake: current Alcohol Intake frequency: holidays/special occasions only Alcohol type: beer Drug use: Current Sobriety Substance use type: does not use and opiates Details: History of IV Drug Use, on Suboxone Caregiver/Support person: No Household members: significant other Housing: house Communication Needs: None Do you need help understanding health information?: Rarely current occupation: [employer] Pets and animals: Yes (2) Pets and animals: cat(s) Sexually active: Yes Do you think of yourself as: straight/heterosexual Current gender identity: male What is your relationship status?: living with partner How often do you talk on the phone with friends or family?: three or more times per week How often do you get together with friends or relatives?: three or more times per week Do you belong to any clubs or organized social groups?: yes Panel score (0-1 are the most socially isolated patients): 3 What type of physical activity do you participate in: other Details: physically active at work; yoga/stretching; weights Duration: 30-45 minutes/day Frequency: daily Constance/Mosque: Atheist Special constance needs: No Seatbelt use: always Helmet use: Yes 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 Head: Normocephalic, atraumatic. Eye: Extraocular eye movements intact. No conjunctival injection. No scleral icterus. Ear, nose, mouth, throat: Grossly normal inspection. Normal voice, handling secretions normally. Neck: Trachea midline. Cardiovascular: Well-perfused distal extremities. Respiratory: Nonlabored respiration. Gastrointestinal: Nondistended abdomen. Musculoskeletal: No edema. Moving all 4 extremities spontaneously. On the posterior and medial aspect of the patient's left knee there is a small erythematous area that is less than 1 mm in diameter. No significant surrounding erythema. No fluctuance. No pain out of proportion. Skin: Normal for age and race, grossly normal temperature and turgor. No acute rash. Neurologic: Alert and appropriate, no apparent acute deficits. Psychiatric: Mood and manner are appropriate. Grooming and personal hygiene are appropriate. Course Vital Signs Vital signs: Vital Signs Temperature 36.3 C L 08/18/22 14:16 Pulse 68 08/18/22 14:16 Respiratory Rate 18 08/18/22 14:16 Blood Pressure 113/68 08/18/22 14:16 Pulse Oximetry 100 08/18/22 14:16 Temperature 36.3 C L 08/18/22 14:16 Temperature Source Oral 08/18/22 14:16 Pulse 68 08/18/22 14:16 Respiratory Rate 18 08/18/22 14:16 Blood Pressure 113/68 08/18/22 14:16 Blood Pressure Position Sitting 08/18/22 14:16 Pulse Oximetry 100 08/18/22 14:16 Oxygen Delivery Method Room Air 08/18/22 14:16 Oxygen Flow Rate 0 08/18/22 14:16
== END 2022-08-18 14:37 | disposition home or self-care (01) ==
PROVIDERS: Emergency Provider Emergency Medicine; PCP Family Medicine
DX: S80.862A Insect bite (nonvenomous), left lower leg, initial encounter (principal); W57.XXXA Bitten or stung by nonvenomous insect and other nonvenomous arthropods, initial encounter; I10 Essential (primary) hypertension
CPT/HCPCS: 99281; 99282

== ENCOUNTER 2022-10-16 15:55 | Emergency (ER) | payer MEDICAID, SELFPAY ==
[2022-10-16 16:00] VITALS: BP 114/77; PULSE 84; RESP 22; TEMP 36.2; O2SAT 100
--- NOTE | 2022-10-16 16:17 | ED.GENADUL_ITS ---
Discharge Plan Disposition Patient Disposition: Eloped Discharge Details Chief Complaint: RespSymp Clinical Impression: Cough Primary Care Provider: Karan Hunt ED Provider: Meme Bradley Home Meds and New Rx's Prescriptions: No Action naproxen [Naprosyn] 500 mg tablet 500 mg PO BID PRN (Reason: pain) Qty: 90 2RF albuterol sulfate 90 mcg/actuation aerosol powdr breath activated 2 inh inhalation Q4H PRN (Reason: shortness of breath or wheezing) Qty: 1 0RF buprenorphine-naloxone 8-2 mg tablet, sublingual 1 tab SUBLINGUAL DAILY Patient Comments: PLACE ONE TABLET UNDER THE TONGUE EVERY DAY Medical Decision Making 42yo previously healthy male presenting with 6 days of URI symptoms; cough, rhinnorhea, nasal congestion, today with general malaise and lightheadedness. Patient concerned he may have pneumonia. Vital signs and physical exam reassuring; afebrile, no respiratory distress. Not septic. No chest pain to suggest acute coronary syndrome. PERC negative. Taking good PO; will not get labs. Symptomatic treatment with tylenol, ibuprofen. Suspect likely viral URI however given worsening symptoms and general malaise CXR ordered. Viral swab ordered; patient awaiting result before cleared to go radiology. Patient subsequently stating he is not willing to wait for XR or swab result, requests antibiotics and discharge home. I discussed with Mr. Tate that I would need to see the XR before diagnosing him with bacterial pneumonia and would not prescribe antibiotics based solely on his current symptoms. He stated he would wait a little longer but he might just leave and call my doctor. Subsequently eloped from department. HPI General Mode of arrival: ambulatory . Date/Time Provider Initiated Documentation: 10/16/22 16:12 . Limitations to Documentation: no limitations . Information obtained by: patient . HPI Narrative: 42yo previously healthy male presenting with 6 days of URI symptoms; cough, rhinnorhea, nasal congestion, today with general malaise and lightheadedness. No nausea or vomiting, has been taking good fluids, does have diminished appetite because things taste off. No chest pain or difficulty breathing. He is otherwise in his usual state of health with no fevers, chills, rash, abdominal pain, vertigo, numbness, focal weakness, or other concerns. Related Data Home Medications Medication Instructions Recorded Confirmed naproxen 500 mg tablet (Naprosyn) 500 mg PO BID PRN pain #90 tabs 03/28/22 10/16/22 albuterol sulfate 90 mcg/actuation 2 inh inhalation Q4H PRN shortness 04/30/22 10/16/22 breath activated powder inhaler of breath or wheezing #1 ea buprenorphine 8 mg-naloxone 2 mg 1 tab sublingual DAILY 10/16/22 10/16/22 sublingual tablet Previous Rx's Medication Instructions Recorded naproxen 500 mg tablet (Naprosyn) 500 mg PO BID PRN pain #90 tabs 03/28/22 albuterol sulfate 90 mcg/actuation 2 inh inhalation Q4H PRN shortness 04/30/22 breath activated powder inhaler of breath or wheezing #1 ea Allergies Allergy/AdvReac Type Severity Reaction Status Date / Time No Known Allergies Allergy Verified 10/16/22 16:01 General Stated Complaint: RespSymp HERLINDA: 4 Review of Systems Narrative: see HPI PFSH All Active Problems (Updated 10/16/22 @ 20:04 by Meme Bradley MD) Cough (Acute) Medial epicondyle apophysitis due to overuse (Acute) Encounter for annual health examination (Acute) Recurrent umbilical hernia with incarceration (Acute) Carpal tunnel syndrome, bilateral (Acute) Polyarthritis (Acute) Family history of cardiovascular disease (Acute) Low back pain (Acute) Medical History History of opioid abuse Tobacco use Family History Father Substance abuse Heart disease Mother Anxiety Depression Diabetes Social History Smoking/Tobacco Use Status: Current every day Tobacco Type: cigarettes Tobacco: How many years used: 25 Smokeless tobacco user: chewing tobacco Quit status: quit date established (April 2022) Smoking risk assessment performed?: Yes Alcohol Intake: current Alcohol Intake frequency: holidays/special occasions only Alcohol type: beer Drug use: Current Sobriety Substance use type: does not use and opiates Details: History of IV Drug Use, on Suboxone Caregiver/Support person: No Household members: significant other Housing: house Communication Needs: None Do you need help understanding health information?: Rarely current occupation: [employer] Pets and animals: Yes (2) Pets and animals: cat(s) Sexually active: Yes Do you think of yourself as: straight/heterosexual Current gender identity: male What is your relationship status?: living with partner How often do you talk on the phone with friends or family?: three or more times per week How often do you get together with friends or relatives?: three or more times per week Do you belong to any clubs or organized social groups?: yes Panel score (0-1 are the most socially isolated patients): 3 What type of physical activity do you participate in: other Details: physically active at work; yoga/stretching; weights Duration: 30-45 minutes/day Frequency: daily Constance/Hinduism: Atheist Special constance needs: No Seatbelt use: always Helmet use: Yes Drive 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 Head: Normocephalic, atraumatic Neck: Trachea midline, Neck supple. ENT: MMM. No oropharygeal lesions or exudate. Cardiac: RRR, no murmurs appreciated Resp: No respiratory distress. CTAB. + cough Abd: Soft, non-distended, nontender : No suprapubic tenderness. Extremities: No deformities. No peripheral edema. Neurologic: GCS 15. Moves all extremities freely against gravity Course Vital Signs Vital signs: Vital Signs Temperature 36.2 C L 10/16/22 16:00 Pulse 84 10/16/22 16:00 Respiratory Rate 10/16/22 16:00 Blood Pressure 114/77 10/16/22 16:00 Pulse Oximetry 100 10/16/22 16:00 Temperature 36.2 C L 10/16/22 16:00 Temperature Source Skin 10/16/22 16:00 Pulse 84 10/16/22 16:00 Respiratory Rate 22 10/16/22 16:00 Blood Pressure 114/77 10/16/22 16:00 Blood Pressure Position Sitting 10/16/22 16:00 Pulse Oximetry 100 10/16/22 16:00 Oxygen Delivery Method Room Air 10/16/22 16:00 Oxygen Flow Rate 0 10/16/22 16:00 Pain Level 4 10/16/22 16:00
[2022-10-16] MEDS: Ibuprofen 400 MG TAB PO (16:23)
[2022-10-16] MEDS: Acetaminophen 325 MG TAB 650 MG PO (16:23)
[2022-10-16 17:34] LABS: COVID-19 PCR Negative (Negative); Influenza A PCR Negative (Negative); Influenza B PCR Negative (Negative); RSV PCR Negative (Negative)
[2022-10-16 17:35] LABS: Source NASOPHARYNX
== END 2022-10-16 17:49 | disposition left against medical advice (07) ==
PROVIDERS: Emergency Provider Student in an Organized Health Care Education/Training Program; PCP Family Medicine
DX: R05.9 Cough, unspecified (principal); R42 Dizziness and giddiness
CPT/HCPCS: 87637; 99283